=== PATIENT | female | born 1945 | race Caucasian/White ===

== ENCOUNTER 2020-12-22 23:28 | Emergency (ER) | payer MEDICARE, OTHER ==
[~2020-12-22] VITALS: Ht 157.5 cm; Wt 73.7 kg
[2020-12-22] MEDS ORDERED: ACETAMINOPHEN 500 MG TABLET PO ONE (23:45)
[2020-12-22] MEDS ORDERED: DEXAMETHASONE 4 MG TABLET PO ONE (23:45)
[2020-12-23 00:08] LABS: BASO # 0.2 x10^3/uL (0.0-0.2); BASO % 1 % (0-3); EOS % 0 % (0-3); HEMATOCRIT 41.8 % (36.0-47.0); HEMOGLOBIN 13.4 g/dL (12.0-15.5); LYMPH # 0.8 x10^3/uL (1.0-4.8); LYMPH % 6 % (24-48); MEAN CORPUSCULAR HEMOGLOBIN 30 pg (25-35); MEAN CORPUSCULAR HGB CONC 32 g/dL (31-37); MEAN CORPUSCULAR VOLUME 92 fL (79-100); MONO # 1.2 x10^3/uL (0.0-1.1); MONO % 8 % (0-9); NEUT # 12.5 x10^3uL (1.8-7.7); NEUT % 85 % (31-73); PLATELET COUNT 297 x10^3/uL (140-400); RED BLOOD COUNT 4.53 x10^6/uL (3.50-5.40); RED CELL DISTRIBUTION WIDTH 15.9 % (11.5-14.5); WHITE BLOOD COUNT 14.8 x10^3/uL (4.0-11.0)
[2020-12-23 00:13] LABS: CALCIUM 8.7 mg/dL (8.5-10.1); CREATININE 2.3 mg/dL (0.6-1.0); GFR 20.6; POTASSIUM 3.7 mmol/L (3.5-5.1)
[2020-12-23 00:19] LABS: ALBUMIN/GLOBULIN RATIO 0.9 (1.0-1.7); TOTAL BILIRUBIN 0.5 mg/dL (0.2-1.0); TOTAL PROTEIN 6.4 g/dL (6.4-8.2)
[2020-12-23] MEDS ORDERED: IPRATRPIUM/ALBUTEROL 0.5/2.5MG 3 ML NEBU. NEB ONE (00:30)
--- NOTE | 2020-12-23 00:51 | RAD ---
XR CHEST 1V Clinical History: Reason: SOB / Spl. Instructions: / History: Technique: AP view of the chest was obtained at 12/22/2020 12:11 AM. Comparison: None. Findings: The heart is mildly large. The pulmonary vessels appear somewhat full and cephalized. There is increa sed reticular opacities of the lungs. The pleural margins are clear. Impression: 1. Mild cardiomegaly. 2. Bilateral infiltrates consistent with CHF. Electronically signed by: Puneet Johnson III, MD (12/23/2020 12:48 AM) [facility]
[2020-12-23] MEDS ORDERED: IV RINGERS SOLUTION,LACTATED 1,000 ML IV ONE (01:15)
--- NOTE | 2020-12-23 01:35 | PHYS DOC ---
Past History Past Medical History: CHF, COPD, Hypertension Past Surgical History: Other Additional Past Surgical Histo: UNKNOWN Alcohol Use: None Adult General Chief Complaint Chief Complaint: DYSPNEA/RESPIRATOY DISTRESS HPI HPI Patient is a 75-year-old female with a past medical history of CHF, COPD and hypertension who presents with a chief complaint of shortness of breath. States has been going on approximately 1 to 2 days, has worsened over the last 3 or so. States she has been using her COPD treatments at home with little relief. Denies any recent travel, illnesses, fevers, known ill contacts, chest pain, abdominal pain, nausea, vomiting, dysuria, hematuria or blood in the stool. States that she has had decreased urine output and fatigue. States she is taking all her medications as prescribed. Review of Systems Review of Systems Review of systems otherwise unremarkable except noted in HPI Current Medications Current Medications Current Medications Medications (Trade) Dose Ordered Sig/Martin Start Time Stop Time Status Last Admin Dose Admin Acetaminophen (Tylenol) 1,000 mg 1X ONCE 12/22/20 23:45 12/23/20 00:16 DC 12/23/20 00:14 1,000 MG Albuterol/ Ipratropium (Duoneb) 3 ml 1X ONCE 12/23/20 00:30 12/23/20 00:31 DC 12/23/20 00:32 3 ML Dexamethasone (Decadron) 10 mg 1X ONCE 12/22/20 23:45 12/23/20 00:16 DC 12/23/20 00:14 10 MG Lactated Ringer's 1,000 ml @ 1,000 mls/hr 1X ONCE 12/23/20 01:15 12/23/20 02:14 12/23/20 01:16 1,000 MLS/HR Levofloxacin/ Dextrose 150 ml @ 100 mls/hr 1X ONCE 12/23/20 01:00 12/23/20 02:29 12/23/20 00:51 100 MLS/HR Allergies Allergies Allergies Coded Allergies Type Severity Reaction Last Updated Verified LETICIA Inhibitors Allergy Intermediate 12/23/20 Yes ARB-Angiotensin Receptor Antagonist Allergy Intermediate 12/23/20 Yes Beta-Blockers (Beta-Adrenergic Bloc Allergy Intermediate 12/23/20 Yes Calcium Channel Blocking Agent Dilt Allergy Intermediate 12/23/20 Yes Calcium Channel Blocking Agents-Dih Allergy Intermediate 12/23/20 Yes chlorothiazide Allergy Intermediate 12/23/20 Yes clonidine Allergy Intermediate 12/23/20 Yes furosemide Allergy Intermediate 12/23/20 Yes hydralazine Allergy Intermediate 12/23/20 Yes Physical Exam Physical Exam Constitutional: Well developed, well nourished, no acute distress, non-toxic appearance. [] HENT: Normocephalic, atraumatic, bilateral external ears normal, oropharynx moist, no oral exudates, nose normal. [] Eyes: conjunctiva normal, no discharge. [] Neck: Normal range of motion, Cardiovascular: Sinus tachycardia Lungs & Thorax: Bilateral, global rhonchi and end expiratory wheeze Abdomen: soft, no tenderness, no masses, no pulsatile masses. [] Skin: Warm, dry, no erythema, no rash. [] Back: No tenderness, no CVA tenderness. [] Extremities: No tenderness, no cyanosis, no clubbing, ROM intact, no edema. [] Neurologic: Alert and oriented X 3, normal motor function, normal sensory function, no focal deficits noted. [] Psychologic: Affect normal, judgement normal, mood normal. [] Current Patient Data Vital Signs Vital Signs Date Time Temp Pulse Resp B/P (MAP) Pulse Ox O2 Delivery O2 Flow Rate FiO2 12/23/20 00:39 103 42 115/46 (69) 94 BiPAP/CPAP 12/23/20 00:02 103.0 15.0 Lab Results Laboratory Tests Test 12/22/20 23:38 12/22/20 23:45 Sodium Level 141 mmol/L (136-145) Potassium Level 3.7 mmol/L (3.5-5.1) Chloride Level 100 mmol/L (98-107) Carbon Dioxide Level 33 mmol/L (21-32) H Anion Gap 8 (6-14) Blood Urea Nitrogen 28 mg/dL (7-20) H Creatinine 2.3 mg/dL (0.6-1.0) H Estimated GFR (Cockcroft-Gault) 20.6 BUN/Creatinine Ratio 12 (6-20) Glucose Level 145 mg/dL (70-99) H Lactic Acid Level 2.1 mmol/L (0.4-2.0) H Calcium Level 8.7 mg/dL (8.5-10.1) Total Bilirubin 0.5 mg/dL (0.2-1.0) Aspartate Amino Transferase (AST) 18 U/L (15-37) Alanine Aminotransferase (ALT) 14 U/L (14-59) Alkaline Phosphatase 59 U/L (46-116) Troponin I Quantitative 0.366 ng/mL (0-0.055) H RC-Xoq-J-Type Natriuretic Peptide 23157 pg/mL (0-449) H Total Protein 6.4 g/dL (6.4-8.2) Albumin 3.0 g/dL (3.4-5.0) L Albumin/Globulin Ratio 0.9 (1.0-1.7) L White Blood Count 14.8 x10^3/uL (4.0-11.0) H Red Blood Count 4.53 x10^6/uL (3.50-5.40) Hemoglobin 13.4 g/dL (12.0-15.5) Hematocrit 41.8 % (36.0-47.0) Mean Corpuscular Volume 92 fL (79-100) Mean Corpuscular Hemoglobin 30 pg (25-35) Mean Corpuscular Hemoglobin Concent 32 g/dL (31-37) Red Cell Distribution Width 15.9 % (11.5-14.5) H Platelet Count 297 x10^3/uL (140-400) Neutrophils (%) (Auto) 85 % (31-73) H Lymphocytes (%) (Auto) 6 % (24-48) L Monocytes (%) (Auto) 8 % (0-9) Eosinophils (%) (Auto) 0 % (0-3) Basophils (%) (Auto) 1 % (0-3) Neutrophils # (Auto) 12.5 x10^3uL (1.8-7.7) H Lymphocytes # (Auto) 0.8 x10^3/uL (1.0-4.8) L Monocytes # (Auto) 1.2 x10^3/uL (0.0-1.1) H Eosinophils # (Auto) 0.0 x10^3/uL (0.0-0.7) Basophils # (Auto) 0.2 x10^3/uL (0.0-0.2) EKG EKG EKG nondiagnostic and unreadable Radiology/Procedures Radiology/Procedures []R CHEST 1V Clinical History: Reason: SOB / Spl. Instructions: / History: Technique: AP view of the chest was obtained at 12/22/2020 12:11 AM. Comparison: None. Findings: The heart is mildly large. The pulmonary vessels appear somewhat full and cephalized. There is increased reticular opacities of the lungs. The pleural margins are clear. Impression: 1. Mild cardiomegaly. 2. Bilateral infiltrates consistent with CHF. Electronically signed by: Puneet Johnson III, MD (12/23/2020 12:48 AM) [facility] Heart Score C/O Chest Pain: No Risk Factors: Risk Factors: DM, Current or recent (<one month) smoker, HTN, HLP, family history of CAD, obesity. Risk Scores: Risk Factors: DM, Current or recent (<one month) smoker, HTN, HLP, family history of CAD, obesity. Course & Med Decision Making Course & Med Decision Making Patient is a 75-year-old female who presents with a chief complaint of shortness of breath. Vital signs notable for tachycardia, tachypnea and hypoxia on room air. Patient placed on noninvasive positive pressure ventilation initially, had some improvement with that and DuoNeb then switched to nasal cannula after some time. Chest x-ray noted above with probable pulmonary edema bilaterally, given her fever probably underlying pneumonia. Laboratory analysis notable for neutrophilic leukocytosis, KIRA, elevated troponin and elevated BNP. Patient given dose of home Bumex. Started on antibiotics, given DuoNeb and steroids for probable COPD exacerbation as well as pneumonia on top of pulmonary edema given fever. Cultures obtained. Discussed all findings with patient and family and recommended admission to the hospital for continued evaluation and treatment of her diagnosis above. Family grateful, verbalized understanding and agreed with plan of admission. [] Dragon Disclaimer Dragon Disclaimer This electronic medical record was generated, in whole or in part, using a voice recognition dictation system. Departure Departure: Impression: Primary Impression: CHF exacerbation Additional Impressions: Elevated troponin KIRA (acute kidney injury) Pneumonia Fever A-fib Disposition: 02 DC/TRF OTHER SHORT TERM HOS Admitting Physician: Alison Arreguin Condition: IMPROVED Referrals: NAZ EDMONDS MD (PCP) Problem Qualifiers GALLITO DIANA MD Dec 23, 2020 01:35
[2020-12-23] MEDS ORDERED: BUMETANIDE 1 MG/4 ML VIAL. IVP SCH (02:00)
[2020-12-23 02:25] LABS: BGAS PH 7.38 (7.35-7.45)
[2020-12-23 02:38] VITALS: BP 107/68
--- NOTE | 2020-12-23 03:24 | EKG ---
[facility] ED 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
[2020-12-23 04:24] LABS: BACTERIA,URINE MANY /HPF (0-FEW); BILIRUBIN,URINE SMALL (NEG); CLARITY,URINE HAZY; COLOR,URINE YELLOW; GLUCOSE,URINE NEG (NEG); NITRITE,URINE NEG (NEG); UROBILINOGEN,URINE 0.2 mg/dL (0.2 mg/dL); WBC,URINE >40 /HPF (0-4)
--- NOTE | 2020-12-24 13:08 | NUR ---
IP note: Call attempted to pt at [phone]. SMS message sent with number for return call, as pt's name-identified voicemailbox is full.
== END 2020-12-23 04:13 | disposition short-term general hospital (02) ==
LOC: ER 23:28
DX: N17.9 Acute kidney failure, unspecified (principal); J18.9 Pneumonia, unspecified organism; R77.8 Other specified abnormalities of plasma proteins; I48.91 Unspecified atrial fibrillation; I11.0 Hypertensive heart disease with heart failure; I50.9 Heart failure, unspecified; J44.9 Chronic obstructive pulmonary disease, unspecified; Z20.822 Contact with and (suspected) exposure to COVID-19; Z88.8 Allergy status to other drugs, medicaments and biological substances
CPT/HCPCS: 36415; 36600; 71045; 80053; 81001; 82803; 83605; 83880; 84484; 85025; 93005; 94640; 94660; 96365; 96375; 99285; C9803; J1956; J3490; J7120; J8540; U0003; U0005

== ENCOUNTER → 2021-02-04 | Outpatient (CLI) | payer MEDICARE, OTHER ==
--- NOTE | 2021-02-04 16:07 | RAD ---
US DPLX ARTR EXTREM LOWER BILAT Indication: Reason: PVD, HX OF SMOKING X60 YEARS, HTN / Spl. Instructions: / History: Reported histo ry of chronic arterial occlusions bilaterally. Comparison: None. Procedure: Real-time grayscale, color flow Doppler, and Doppler spectral waveform analysis of the art erial system of the lower extremity is performed. Findings: Right lower extremity: Significant increased velocity within the right deep femoral artery measures 3 91 cm/s. Occlusion of the right mid superficial femoral artery with reconstitution of the popliteal a rtery. Occlusion of the posterior tibial, peroneal and anterior tibial arteries. Reconstitution of th e dorsalis pedis artery with monophasic waveform. Right popliteal cyst measures 5.4 x 3.1 x 1.8 cm. E xtensive atheromatous plaque. Left lower extremity: Monophasic waveforms throughout the left lower extremity. Occlusion of the prox imal posterior tibial artery with distal reconstitution. Decreased velocity within the distal left lo wer extremity. Left popliteal cyst measures 4.6 x 4.4 x 2.0 cm. Extensive atheromatous plaque. IMPRESSION: 1. Occlusion of the RIGHT superficial femoral artery with reconstitution of the popliteal artery. CT angiogram can further assess as clinically warranted. 2. Occlusion of the RIGHT posterior tibial, peroneal and anterior tibial arteries. 3. Occlusion of the LEFT proximal posterior tibial artery with distal reconstitution. 4. Elevated velocity within the RIGHT deep femoral artery, may indicate 50-75 percent stenosis. 5. Bilateral popliteal cysts. Electronically signed by: Kenn Villafana DO (02/04/2021 4:04 PM) [facility]
== END ==
LOC: US 14:41
PROVIDERS: ATTEND Family Medicine
DX: M71.22 Synovial cyst of popliteal space [Baker], left knee (principal); M71.21 Synovial cyst of popliteal space [Baker], right knee; I70.92 Chronic total occlusion of artery of the extremities; Z87.891 Personal history of nicotine dependence
CPT/HCPCS: 93925

== ENCOUNTER 2021-09-09 23:22 | Inpatient (IN) | payer OTHER ==
[~2021-09-09] VITALS: Ht 152.4 cm; Wt 83.8 kg
[2021-09-10 00:34] LABS: BASO # 0.1 x10^3/uL (0.0-0.2); BASO % 1 % (0-3); EOS # 0.4 x10^3/uL (0.0-0.7); EOS % 4 % (0-3); HEMATOCRIT 32.3 % (36.0-47.0); HEMOGLOBIN 10.3 g/dL (12.0-15.5); LYMPH # 1.2 x10^3/uL (1.0-4.8); LYMPH % 10 % (24-48); MEAN CORPUSCULAR HEMOGLOBIN 30 pg (25-35); MEAN CORPUSCULAR HGB CONC 32 g/dL (31-37); MEAN CORPUSCULAR VOLUME 93 fL (79-100); MONO # 0.9 x10^3/uL (0.0-1.1); MONO % 8 % (0-9); NEUT # 9.1 x10^3uL (1.8-7.7); NEUT % 77 % (31-73); PLATELET COUNT 290 x10^3/uL (140-400); RED BLOOD COUNT 3.48 x10^6/uL (3.50-5.40); RED CELL DISTRIBUTION WIDTH 14.7 % (11.5-14.5); WHITE BLOOD COUNT 11.7 x10^3/uL (4.0-11.0)
[2021-09-10 00:43] LABS: CALCIUM 8.8 mg/dL (8.5-10.1); CREATININE 1.5 mg/dL (0.6-1.0); GFR 33.6; POTASSIUM 3.8 mmol/L (3.5-5.1)
[2021-09-10 00:56] LABS: ALBUMIN 3.1 g/dL (3.4-5.0); MAGNESIUM 1.9 mg/dL (1.8-2.4); PHOSPHORUS 3.6 mg/dL (2.6-4.7); TOTAL BILIRUBIN 0.3 mg/dL (0.2-1.0); TOTAL PROTEIN 6.1 g/dL (6.4-8.2)
--- NOTE | 2021-09-10 01:33 | EKG ---
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
--- NOTE | 2021-09-10 01:48 | RAD ---
AP chest x-ray HISTORY: Dyspnea. COMPARISON: Chest x-ray December 23, 2020 FINDINGS: Moderate cardiomegaly is stable. No pneumothorax. No pleural effusions. There is a mild opa city right lung base could be atelectasis or lobar pneumonia. Left lung is clear. Upper thoracic scol iosis. IMPRESSION: Right lower lobe opacity. Electronically signed by: Agusto Cox MD (09/10/2021 1:45 AM) [facility]
[2021-09-10] MEDS ORDERED: ACETAMINOPHEN 325 MG TABLET PO PRN (02:30)
[2021-09-10] MEDS ORDERED: IPRATRPIUM/ALBUTEROL 0.5/2.5MG 3 ML NEBU. NEB PRN (02:30)
[2021-09-10] MEDS ORDERED: DEXAMETHASONE SOD PHOS 10 MG/ML VIAL. IVP ONE (02:30)
[2021-09-10] MEDS ORDERED: IV NORMAL SALINE 500ML 500 ML IV ONE (02:30)
[2021-09-10] MEDS ORDERED: ONDANSETRON PF 4 MG/2 ML VIAL. IVP PRN (02:30)
[2021-09-10 02:44] LABS: BGAS PH 7.36 (7.35-7.45)
[2021-09-10 03:03] LABS: BILIRUBIN,URINE NEG (NEG); CLARITY,URINE HAZY; COLOR,URINE YELLOW; GLUCOSE,URINE NEG (NEG); NITRITE,URINE POS (NEG); UROBILINOGEN,URINE 0.2 mg/dL (0.2 mg/dL)
[2021-09-10 03:04] LABS: BACTERIA,URINE MANY /HPF (0-FEW); RBC,URINE 0 /HPF (0-2); SQUAMOUS EPITHELIAL CELL,UR FEW /LPF; WBC,URINE >40 /HPF (0-4)
[2021-09-10 04:53] LABS: INFLUENZA A PATIENT NEGATIVE (NEGATIVE); INFLUENZA B PATIENT NEGATIVE (NEGATIVE)
[2021-09-10] MEDS ORDERED: OXYMETAZOLINE 0.05% NASAL SPRAY 30ML BOTTLE. NS ONE ×2 (05:00)
[2021-09-10 17:01] VITALS: BP 120/60
--- NOTE | 2021-09-10 17:50 | NUR ---
ADMISSION PT ARRIVED VIA EMS WITH BELONGINGS. PT CHANGED INTO GOWN AND KEPT RINGS ON. PT ON 5L NASAL CANNULA. PT ORIENTED TO PERSON AND WAS ABLE TO STATE , BUT UNABLE TO TELL US WHERE SHE WAS OR HER SITUATION. PT HAS SIGNIFICANT TREMORS IN UPPER EXTREMITIES AND BILATERAL 1+ LOWER EDEMA. PT STATES SHE LIVES AT HOME WITH HER TWO SONS. PT STATES "I AM GOING TO , I AM HERE TO ." PT CHANGED INTO GOWN, VITALS TAKEN, ADMISSION COMPLETED. DR EDMONDS NOTIFIED OF PT ARRIVAL.
[2021-09-10] MEDS ORDERED: LEVO88TA4 PO ×2 (18:09→18:27)
[2021-09-10] MEDS ORDERED: MONT10TA80 PO (18:27)
[2021-09-10] MEDS ORDERED: HYDR-2869 PO (18:27)
[2021-09-10] MEDS ORDERED: DOXA1TAB2 PO (18:27)
[2021-09-10] MEDS ORDERED: BUME2TAB3 PO (18:27)
[2021-09-10] MEDS ORDERED: BACL10TA PO (18:27)
[2021-09-10] MEDS ORDERED: PRED5TAB PO (18:27)
[2021-09-10] MEDS ORDERED: LOSA1TAB25 PO (18:27)
[2021-09-10] MEDS ORDERED: AMLO-307 PO (18:27)
--- NOTE | 2021-09-10 18:45 | HP ---
DATE OF SERVICE: 09/10/2021 ADMIT DATE: 09/10/2021 HISTORY OF PRESENT ILLNESS: The patient is a 76-year-old female who came in through the Emergency Room with increased shortness of breath. The patient in turn was noted to have probable a pneumonic process and as a result of this, was admitted to the hospital for further evaluation of her pneumonia and difficulty in breathing. PAST MEDICAL HISTORY: Cardiac disorders, CHF, hypercholesterolemia, hypertension, COPD, pneumonia, hysterectomy, urinary tract infections, arthritis, hypothyroidism, tobacco abuse, smoking. ALLERGIES: LETICIA INHIBITORS, ARB INHIBITORS, BETA BLOCKERS, CALCIUM CHANNEL BLOCKERS, CHLORTHALIDONE, CLONIDINE, FUROSEMIDE, HYDRALAZINE. SOCIAL HISTORY: A 40-50 pack year history of smoking, occasional alcohol use. She is a full code. REVIEW OF SYSTEMS: Increased shortness of breath, coughing. Denies chest pain, abdominal pain. Denies any melena, hematochezia, hematemesis and neurologically stable in that regard. PHYSICAL EXAMINATION: GENERAL: An ill-appearing white female. VITAL SIGNS: Blood pressure 146/80, respiratory rate 32, pulse 75, temperature 98.3, 3 liters at 93. HEENT: The patient's head was atraumatic, normocephalic. Eyes: PERRLA without jaundice. The mouth and throat were normal. NECK: Supple without JVD or thyroidmegaly. LUNGS: Diminished, poor movement of air in both lobes, decreased. CARDIOVASCULAR: Regular sinus rhythm. ABDOMEN: Soft, protuberant. EXTREMITIES: No clubbing, cyanosis, nor edema. NEUROLOGIC: Intact. IMAGING STUDIES: The patient's imaging shows right lower lobe opacity. LABORATORY DATA: White count 11, hemoglobin 10 and 32. Chemistry; 142, 3.8, 23, 1.5, albumin 3.1. Blood gas shows CO2 retention, 7.36, pCO2 of 64, pO2 of 54. COVID negative. UA shows greater than 40 white blood cells per high powered field. IMPRESSION: Pneumonia, urinary tract infection, moderate protein malnutrition. The patient continued to be monitored carefully, make further evaluation on her as indicated per those results and continue on IV antibiotic therapy and breathing treatments. STAN DR: Denise TID: [id number]
[2021-09-10 20:05] VITALS: BP 146/74
[2021-09-10 20:58] VITALS: BP 146/69
[2021-09-10 23:26] VITALS: BP 170/61
--- NOTE | 2021-09-11 01:13 | NUR ---
Pt with clearer mentation this evening. A/Ox3, forgetful at times. Able to make needs known. Weaned supplemental O2 back to home level of 3L via NC, sats maintaining 93-95%. Pt reports she is still SOA, but improved from arrival to ED.
[2021-09-11 06:02] VITALS: BP 136/67
[2021-09-11] MEDS ORDERED: AMLODIPINE PO SCH (09:00)
[2021-09-11] MEDS ORDERED: NON FORMULARY ITEM (Losartan/Hydrochlorothiazide (Losartan-Hctz 100-12.5 Mg Tab) 1 TAB) PO SCH (09:00)
[2021-09-11] MEDS: predniSONE 5 MG TABLET PO SCH (09:00)
[2021-09-11] MEDS ORDERED: VALSARTAN PO SCH (09:00)
[2021-09-11] MEDS: BUMETANIDE 1 MG TABLET PO SCH (10:00)
[2021-09-11] MEDS: DOXAZOSIN MESYLATE 1 MG TABLET PO SCH (10:00)
[2021-09-11 10:36] VITALS: BP 164/66
[2021-09-11] MEDS: LEVOTHYROXINE 88 MCG TABLET PO SCH (11:00)
--- NOTE | 2021-09-11 12:41 | RAD ---
EXAM: Head CT without contrast. HISTORY: Left arm weakness. TECHNIQUE: Computed tomographic images of the head were obtained without contrast. *One or more of the following individualized dose reduction techniques were utilized for this examina tion: 1. Automated exposure control. 2. Adjustment of the mA and/or kV according to patient size. 3. Use of iterative reconstruction technique. COMPARISON: None. FINDINGS: The exam is limited due to motion. There is no intracranial hemorrhage. There is cerebral v olume loss. There is no mass effect or midline shift. There is no hydrocephalus. There is decreased attenuation within the right frontal lobe likely due to encephalomalacia from chronic care nurse teofilo infarction. There is decreased attenuation within the cerebral white matter due to chronic small vessel disease. There is a tiny incidental lipoma along the anterior falx. The visualized portions of the orbits, paranasal sinuses and mastoid air cells are unremarkable. No s uspicious calvarial lesion is seen. IMPRESSION: 1. No acute intracranial finding. Note is made that MRI is more sensitive for acute infarction. 2. Chronic infarct within the right frontal lobe. 3. Cerebral white matter changes, likely due to chronic small vessel disease. 4. Cerebral volume loss. Electronically signed by: Mimi Beltran MD (09/11/2021 12:39 PM) [id number]
[2021-09-11] MEDS: IPRATRPIUM/ALBUTEROL 0.5/2.5MG 3 ML NEBU. NEB SCH ×2 (14:00→19:38)
[2021-09-11 15:56] VITALS: BP 148/75
[2021-09-11 19:00] VITALS: BP 134/57
[2021-09-11] MEDS ORDERED: AMLO-186 PO (19:41)
[2021-09-11] MEDS ORDERED: PENT400T7 PO (19:41)
[2021-09-11] MEDS ORDERED: LOSA100T14 PO (19:41)
[2021-09-11] MEDS ORDERED: HYDR-2869 PO (19:41)
[2021-09-11] MEDS: PENTOXIFYLLINE ER 400 MG TABLET.ER. PO SCH (20:32)
[2021-09-11] MEDS: MONTELUKAST 10 MG TABLET. PO SCH (20:32)
[2021-09-11] MEDS: BACLOFEN 10 MG TABLET PO PRN (20:32)
[2021-09-11] MEDS: LACTOBACILLUS RHAMNOSUS GG 1 CAPSULE. PO SCH (20:33)
[2021-09-11 23:00] VITALS: BP 145/76
--- NOTE | 2021-09-12 02:18 | PN ---
SUBJECTIVE: The patient is a 76-year-old female with pneumonia, shortness of breath. The patient has left arm weakness and contractures secondary to a right frontal stroke that she suffered years ago. The patient is undergoing physical therapy. She is receiving respiratory therapy as well as PT, OT. OBJECTIVE: VITAL SIGNS: Blood pressure 134/57, respiratory rate 20, pulse 72, afebrile, 3 liters at only 93. GENERAL: The patient otherwise is alert and oriented. The patient as noted has contracture to left arm, left hand and will need a splint to keep her fingers from digging into the palm of the hand. LUNGS: Otherwise diminished throughout, poor movement of air. CARDIOVASCULAR: Regular sinus rhythm. ABDOMEN: Protuberant. EXTREMITIES: No clubbing, cyanosis or edema. NEUROLOGIC: As noted, the patient is alert. She speaks rather well. She does have some problem, of course, with that left arm and hand as noted above. 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 PLAN: Otherwise continue to monitor the patient and continue with IV antibiotic therapy. MARILU DR: Denise TID: [id number]
[2021-09-12 05:00] VITALS: BP 144/74
[2021-09-12] MEDS: IPRATRPIUM/ALBUTEROL 0.5/2.5MG 3 ML NEBU. NEB SCH ×3 (05:07→20:58)
[2021-09-12] MEDS: LOSARTAN 50 MG TABLET. PO SCH (08:20)
[2021-09-12] MEDS: LACTOBACILLUS RHAMNOSUS GG 1 CAPSULE. PO SCH ×2 (08:20→20:32)
[2021-09-12] MEDS: predniSONE 5 MG TABLET PO SCH (08:21)
[2021-09-12] MEDS: LEVOTHYROXINE 88 MCG TABLET PO SCH (08:21)
[2021-09-12] MEDS: amLODIPine BESYLATE 5 MG TABLET PO SCH (08:21)
[2021-09-12] MEDS: BUMETANIDE 1 MG TABLET PO SCH (08:21)
[2021-09-12] MEDS: PENTOXIFYLLINE ER 400 MG TABLET.ER. PO SCH ×3 (08:21→20:32)
[2021-09-12] MEDS: DOXAZOSIN MESYLATE 1 MG TABLET PO SCH (08:22)
--- NOTE | 2021-09-12 09:42 | PN ---
SUBJECTIVE: The patient with pneumonia. The patient is a pleasant 76-year-old female who has a problem of right sided CVA, left sided stroke, she has had for some time. However, the patient does have a loss of use of that left arm and hand. The patient, however, presently is in here because of a pneumonic process and this in turn has caused her to have some difficulty in breathing. Although she is improved, she is on continuous oxygen, but she is on oxygen in any way at home for chronic emphysema and she was a heavy smoker. OBJECTIVE: VITAL SIGNS: Blood pressure 144/74, respiratory rate 18, pulse 90. She is afebrile, 3 liters nasal cannula 92. GENERAL: The patient is alert and oriented. Has a little trouble with her speech. Due to her previous history of stroke, the patient has left arm weakness and contractures, thus the hand and fingers. Physical therapy is working diligently with that. LUNGS: Diminished throughout, but basically clear. CARDIOVASCULAR: Regular sinus rhythm, S1, S2. ABDOMEN: Protuberant, soft, nontender. NEUROLOGIC: The patient does have +1 pitting edema. She will be kept on a low sodium diet and also diuresed. IMPRESSION: Therefore, pneumonia, exacerbation of chronic obstructive pulmonary disease with an infection, acute respiratory failure on top of chronic respiratory failure, history of a right sided cerebrovascular accident with left sided hemiparesis, anemia of chronic disease and moderate protein malnutrition. PLAN: Continue with IV antibiotic therapy. Continue to monitor kidney function and we will repeat her chest x-ray. DAK[place] DR: Denise TID: [id number]
[2021-09-12 10:42] VITALS: BP 118/68
[2021-09-12] MEDS ORDERED: SODIUM CHLORIDE 0.65% NASAL SPRAY 45ML BOTTLE. NS PRN (11:30)
[2021-09-12] MEDS: BACLOFEN 10 MG TABLET PO PRN (13:06)
[2021-09-12 15:01] VITALS: BP 114/64
[2021-09-12] MEDS ORDERED: METOPROLOL TARTRATE 5 MG/5 ML VIAL. IV ONE (17:45)
[2021-09-12] MEDS: MONTELUKAST 10 MG TABLET. PO SCH (20:32)
[2021-09-12] MEDS: CYCLOBENZAPRINE 10 MG TABLET. PO PRN (20:32)
[2021-09-12] MEDS: CEFDINIR 300 MG CAPSULE PO SCH (20:32)
[2021-09-12 20:48] VITALS: BP 109/64
[2021-09-13 00:14] VITALS: BP 121/64
[2021-09-13] MEDS: CYCLOBENZAPRINE 10 MG TABLET. PO PRN ×2 (05:35→21:30)
[2021-09-13] MEDS: LEVOTHYROXINE 88 MCG TABLET PO SCH (05:35)
[2021-09-13] MEDS: IPRATRPIUM/ALBUTEROL 0.5/2.5MG 3 ML NEBU. NEB SCH ×3 (06:00→21:31)
--- NOTE | 2021-09-13 06:04 | EKG ---
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
[2021-09-13 06:19] VITALS: BP 106/65
[2021-09-13 06:42] LABS: BASO # 0.1 x10^3/uL (0.0-0.2); BASO % 1 % (0-3); EOS # 0.3 x10^3/uL (0.0-0.7); EOS % 3 % (0-3); HEMATOCRIT 30.2 % (36.0-47.0); HEMOGLOBIN 9.6 g/dL (12.0-15.5); LYMPH # 2.2 x10^3/uL (1.0-4.8); LYMPH % 22 % (24-48); MEAN CORPUSCULAR HEMOGLOBIN 29 pg (25-35); MEAN CORPUSCULAR HGB CONC 32 g/dL (31-37); MEAN CORPUSCULAR VOLUME 93 fL (79-100); MONO # 0.8 x10^3/uL (0.0-1.1); MONO % 9 % (0-9); NEUT # 6.5 x10^3uL (1.8-7.7); NEUT % 66 % (31-73); PLATELET COUNT 272 x10^3/uL (140-400); RED BLOOD COUNT 3.25 x10^6/uL (3.50-5.40); RED CELL DISTRIBUTION WIDTH 14.4 % (11.5-14.5); WHITE BLOOD COUNT 9.8 x10^3/uL (4.0-11.0)
[2021-09-13] MEDS: BUMETANIDE 1 MG TABLET PO SCH (09:05)
[2021-09-13] MEDS: CEFDINIR 300 MG CAPSULE PO SCH ×2 (09:06→21:30)
[2021-09-13] MEDS: LOSARTAN 50 MG TABLET. PO SCH (09:06)
[2021-09-13] MEDS: DOXAZOSIN MESYLATE 1 MG TABLET PO SCH (09:06)
[2021-09-13] MEDS: LACTOBACILLUS RHAMNOSUS GG 1 CAPSULE. PO SCH ×2 (09:06→21:30)
[2021-09-13] MEDS: predniSONE 5 MG TABLET PO SCH (09:06)
[2021-09-13] MEDS: amLODIPine BESYLATE 5 MG TABLET PO SCH (09:06)
[2021-09-13] MEDS: PENTOXIFYLLINE ER 400 MG TABLET.ER. PO SCH ×3 (09:07→21:30)
[2021-09-13] MEDS ORDERED: predniSONE 20 MG TABLET PO SCH (09:30)
[2021-09-13] MEDS ORDERED: CEFD300C PO (09:39)
[2021-09-13] MEDS ORDERED: PRED20TA PO (09:39)
[2021-09-13] MEDS ORDERED: IPRA3AMP29 NEB (09:39)
[2021-09-13] MEDS ORDERED: CYCL10TA19 PO (09:39)
[2021-09-13] MEDS ORDERED: predniSONE 5 MG TABLET PO ONE (09:45)
[2021-09-13 12:21] VITALS: BP 117/62
[2021-09-13 16:31] VITALS: BP 115/72
[2021-09-13 19:20] VITALS: BP 106/61
[2021-09-13] MEDS: MONTELUKAST 10 MG TABLET. PO SCH (21:31)
[2021-09-13 23:22] VITALS: BP 126/67
--- NOTE | 2021-09-13 23:31 | PN ---
DATE: 09/13/2021 SUBJECTIVE: The patient in with pneumonia exacerbation of COPD secondary to the infection and history of a right-sided CVA, left-sided hemiparesis. The patient is feeling a little better, at first wanted to go home and refused, did not want to go home. OBJECTIVE: VITAL SIGNS: Blood pressure 110/60, respiratory 22, pulse 75, afebrile, 4 liters at 91. GENERAL: The patient otherwise alert and oriented. LUNGS: Show some expiratory wheezes. CARDIOVASCULAR: Regular sinus rhythm presently. ABDOMEN: Soft, protuberant. EXTREMITIES: No clubbing, cyanosis or edema. NEUROLOGIC: Intact. IMPRESSION: Pneumonia, community acquired; iron deficiency anemia. PLAN: Continue on IV antibiotic therapy, steroids and start her on some iron supplement, make further evaluation on her as indicated. GABRIELLE/NYA DR: GABRIELLE/kody TID: [id number]
[2021-09-14] MEDS: IPRATRPIUM/ALBUTEROL 0.5/2.5MG 3 ML NEBU. NEB SCH ×3 (03:43→21:01)
[2021-09-14] MEDS: LEVOTHYROXINE 88 MCG TABLET PO SCH (04:53)
[2021-09-14 05:28] VITALS: BP 157/75
[2021-09-14] MEDS: LACTOBACILLUS RHAMNOSUS GG 1 CAPSULE. PO SCH ×2 (08:24→20:40)
[2021-09-14] MEDS: PENTOXIFYLLINE ER 400 MG TABLET.ER. PO SCH ×3 (08:24→20:40)
[2021-09-14] MEDS: CEFDINIR 300 MG CAPSULE PO SCH ×2 (08:24→20:40)
[2021-09-14] MEDS: LOSARTAN 50 MG TABLET. PO SCH (08:24)
[2021-09-14] MEDS: predniSONE 20 MG TABLET PO SCH (08:25)
[2021-09-14] MEDS: BUMETANIDE 1 MG TABLET PO SCH ×2 (08:25→08:30)
[2021-09-14] MEDS: amLODIPine BESYLATE 5 MG TABLET PO SCH (08:25)
[2021-09-14] MEDS: DOXAZOSIN MESYLATE 1 MG TABLET PO SCH (08:26)
[2021-09-14 11:49] VITALS: BP 123/62
[2021-09-14 16:14] VITALS: BP 113/65
--- NOTE | 2021-09-14 16:18 | NUR ---
PT UP TO THE BATHROOM TODAY. DR. EDMONDS'S PLAN IS TO KEEP AT LEAST FOR ANOTHER DAY. PT QUESTIONING HER MEDS TODAY. PT RESTED IN BED MOST OF THE DAY.
[2021-09-14 19:57] VITALS: BP 114/66
--- NOTE | 2021-09-14 20:12 | PN ---
SUBJECTIVE: A 76-year-old female in with pneumonia and acute exacerbation of COPD secondary to her infectious process and acute on top of chronic respiratory failure. The patient is resting comfortably, still wheezy, but markedly improved. OBJECTIVE: VITAL SIGNS: Blood pressure 157/75, respiratory rate 20, pulse 93 liters nasal cannula at 94, afebrile. GENERAL: The patient is alert and oriented. LUNGS: Diminished, but clearer than they have been. She is better, she is improved. She is moving little bit better and will continue to be monitored carefully. CARDIOVASCULAR: Regular sinus rhythm, S1, S2. ABDOMEN: Protuberant. EXTREMITIES: No clubbing, cyanosis or edema. NEUROLOGIC: Otherwise baseline for her. IMPRESSION: Pneumonia, acute on top of chronic respiratory failure. PLAN: Continue with present drug regimen and make further evaluation on her as indicated. GABRIELLE/SOURAV DR: Denise TID: [id number]
[2021-09-14] MEDS: CYCLOBENZAPRINE 10 MG TABLET. PO PRN (20:40)
[2021-09-14] MEDS: MONTELUKAST 10 MG TABLET. PO SCH (20:40)
[2021-09-14 23:34] VITALS: BP 106/57
--- NOTE | 2021-09-15 02:48 | NUR ---
Nursing note: Patient confided to this RN that she has difficulty showering at home d/t step-in shower and lack of grab bar, feels "judged" by some of staff for "being dirty". Discussed possible solutions with patient. Pt up frequently, requested coffee multiple times per shift. Lungs diminished with minimal wheezes, pt on baseline 3L NC.
[2021-09-15] MEDS: IPRATRPIUM/ALBUTEROL 0.5/2.5MG 3 ML NEBU. NEB SCH ×3 (05:41→22:22)
[2021-09-15] MEDS: LEVOTHYROXINE 88 MCG TABLET PO SCH (05:49)
[2021-09-15 05:52] VITALS: BP 149/63
[2021-09-15] MEDS: CEFDINIR 300 MG CAPSULE PO SCH ×2 (08:05→20:19)
[2021-09-15] MEDS: LACTOBACILLUS RHAMNOSUS GG 1 CAPSULE. PO SCH ×2 (08:05→20:19)
[2021-09-15] MEDS: PENTOXIFYLLINE ER 400 MG TABLET.ER. PO SCH ×3 (08:05→20:19)
[2021-09-15] MEDS: predniSONE 20 MG TABLET PO SCH (08:06)
[2021-09-15] MEDS: amLODIPine BESYLATE 5 MG TABLET PO SCH (08:06)
[2021-09-15] MEDS: LOSARTAN 50 MG TABLET. PO SCH (08:06)
[2021-09-15] MEDS: DOXAZOSIN MESYLATE 1 MG TABLET PO SCH (08:07)
[2021-09-15 11:33] VITALS: BP 120/66
--- NOTE | 2021-09-15 13:50 | NUR ---
PT STATES IS GOING TO KEEP HER UNTIL TOMORROW, BECAUSE SHE DOESN'T WANT TO GO HOME IN THE "BITTER COLD" TODAY BECAUSE IT "TAKES MY BREATH AWAY". PT RESTING TODAY.
[2021-09-15 16:06] VITALS: BP 123/63
[2021-09-15] MEDS ORDERED: CALCIUM CARBONATE 500 MG TAB.CHEW PO PRN (18:00)
[2021-09-15 19:56] VITALS: BP 145/72
[2021-09-15] MEDS: MONTELUKAST 10 MG TABLET. PO SCH (20:19)
--- NOTE | 2021-09-15 21:42 | PN ---
SUBJECTIVE: A 76-year-old female in with pneumonia. The patient had an exacerbation of chronic obstructive pulmonary disease secondary to her pneumonia. The patient is resting fairly comfortably, making fairly good progress overall. The patient otherwise is tapering down on her steroids and will continue to be monitored on that. Hopefully, ready for discharge soon. She is only at 91% on room air. OBJECTIVE: VITAL SIGNS: Blood pressure 120/60, respiration 18, pulse 90, afebrile. GENERAL: The patient is alert and oriented. LUNGS: Diminished, markedly improved. CARDIOVASCULAR: Regular sinus rhythm. ABDOMEN: Soft, nontender. IMPRESSION: Therefore, pneumonia, acute exacerbation of chronic obstructive pulmonary disease secondary to her pneumonia, acute respiratory failure on top of chronic respiratory failure, morbid obesity. The patient continued to be monitored and make further evaluation on her as indicated. AI DR: Denise TID: [id number]
[2021-09-15 23:46] VITALS: BP 116/57
[2021-09-16 05:15] VITALS: BP 148/68
[2021-09-16] MEDS: IPRATRPIUM/ALBUTEROL 0.5/2.5MG 3 ML NEBU. NEB SCH ×2 (05:29→11:18)
[2021-09-16] MEDS: LEVOTHYROXINE 88 MCG TABLET PO SCH (05:42)
[2021-09-16] MEDS: LACTOBACILLUS RHAMNOSUS GG 1 CAPSULE. PO SCH (08:46)
[2021-09-16] MEDS: LOSARTAN 50 MG TABLET. PO SCH (08:46)
[2021-09-16] MEDS: predniSONE 20 MG TABLET PO SCH (08:46)
[2021-09-16] MEDS: PENTOXIFYLLINE ER 400 MG TABLET.ER. PO SCH (08:46)
[2021-09-16] MEDS: amLODIPine BESYLATE 5 MG TABLET PO SCH (08:46)
[2021-09-16] MEDS: CEFDINIR 300 MG CAPSULE PO SCH (08:46)
[2021-09-16] MEDS: DOXAZOSIN MESYLATE 1 MG TABLET PO SCH (09:00)
--- NOTE | 2021-09-16 11:08 | DISCH ---
HOME HEALTH DISCHARGE/MEDS DISCHARGE INFORMATION: Discharge Date: Sep 16, 2021 Final Diagnosis: Problems Medical Problems: (1) Acute pneumonia Status: Acute Condition on Discharge: Stable CODE STATUS: Code Status: Full HOME HEALTH: Face to Face: I certify this patient is under my care and that I, or a nurse practitioner or physician's kindergarten teacher assistant working with me, had a face to face encounter that meets the physician face to face encounter requirements with this patient on September 16, 2021. Medical Condition(s): Pneumonia Long Term For: Assess Cardiopulm Status, Assess & Educate Safety, Assess/Skilled Observatio, Medication Management Homebound Status Met By: Fatigue w/ amb. POST DISCHARGE ORDERS: Activity Instructions for Disc: Activity as tolerated Weight Bearing Status after Di: No restrictions DIET AFTER DISCHARGE: Cardiac CERTIFICATION STATEMENT: Certification Statement: Based on the above finding, I certify that this patient is confined to the home and needs intermittent [facility] care, physical therapy and/or speech therapy, or continues to need occupational therapy.~ This patient is under my care, and I have initiated the establishment of the plan of care.~ This patient will be followed by myself or a community physician who will periodically review the plan of care. DISCHARGE MEDICATIONS: Home Meds Active Scripts Prednisone (PREDNISONE) 20 Mg Tablet, 20 MG PO DAILY for copd for 30 Days, #30 TAB Prov:NAZ EDMONDS MD 09/13/21 Cyclobenzaprine Hcl (CYCLOBENZAPRINE HCL) 10 Mg Tablet, 10 MG PO PRN TID PRN for MUSCLE SPASMS for 30 Days, #60 TAB Prov:NAZ EDMONDS MD 09/13/21 Ipratropium/Albuterol Sulfate (DUONEB 0.5-3(2.5) MG/3 ML) 3 Ml Ampul.neb, 3 ML NEB TID for copd for 30 Days, #90 EACH Prov:NAZ EDMONDS MD 09/13/21 Cefdinir (CEFDINIR) 300 Mg Capsule, 300 MG PO BID for pneumonia for 10 Days, #20 CAP Prov:NAZ EDMONDS MD 09/13/21 Reported Medications Losartan Potassium (LOSARTAN POTASSIUM) 100 Mg Tablet, 100 MG PO DAILY for HYPERTENSION, TAB 09/11/21 Hydralazine Hcl (HYDRALAZINE HCL) 50 Mg Tablet, 50 MG PO TID for htn, TAB 09/11/21 Pentoxifylline (PENTOXIFYLLINE) 400 Mg Tablet.er, 400 MG PO TID for improve circulation, TAB.SR 09/11/21 Amlodipine Besylate (AMLODIPINE BESYLATE) 5 Mg Tablet, 5 MG PO DAILY for htn, TAB 09/11/21 Bumetanide (BUMETANIDE) 2 Mg Tablet, 2 MG PO DAILY for EDEMA, TAB 09/10/21 Prednisone (PREDNISONE) 5 Mg Tablet, 5 MG PO DAILY for INFLAMMATION, TAB 09/10/21 Montelukast Sodium (MONTELUKAST SODIUM TABLET ) 10 Mg Tablet, 10 MG PO HS for FOR ASTHMA, TAB 0 Refills 09/10/21 Doxazosin Mesylate (DOXAZOSIN MESYLATE) 1 Mg Tablet, 2 MG PO DAILY for URINARY RETENTION, TAB 09/10/21 Levothyroxine Sodium (LEVOTHYROXINE SODIUM) 88 Mcg Tablet, 88 PO DAILYAC for THYROID SUPPLEMENT, #30 TAB 0 Refills 09/10/21 Discontinued Reported Medications Baclofen (BACLOFEN) 10 Mg Tablet, 10 MG PO BID PRN for SEE ADMIN INSTRUCTIONS, #30 TAB 0 Refills 09/10/21 Amlodipine/Valsartan (Amlodipine-Valsartan 5-160 mg) 1 Each Tablet, 1 TAB PO DAILY for BLOOD PRESSURE, TAB 0 Refills 09/10/21 Hydralazine Hcl (HYDRALAZINE HCL) 50 Mg Tablet, 50 MG PO 2-3XD for BLOOD PRESSURE, TAB 09/10/21 NAZ EDMONDS MD Sep 16, 2021 11:08
--- NOTE | 2021-09-16 11:26 | DISCH ---
HOME HEALTH DISCHARGE/MEDS DISCHARGE INFORMATION: Discharge Date: Sep 16, 2021 Final Diagnosis: Problems Medical Problems: (1) Acute pneumonia Status: Acute Condition on Discharge: Stable CODE STATUS: Code Status: Full HOME HEALTH: Face to Face: I certify this patient is under my care and that I, or a nurse practitioner or physician's yard assistant working with me, had a face to face encounter that meets the physician face to face encounter requirements with this patient on 2021. Medical Condition(s): Pneumonia Intermediate For: Assess Cardiopulm Status, Assess & Educate Safety, Assess/Skilled Observatio, Medication Management Homebound Status Met By: Fatigue w/ amb. POST DISCHARGE ORDERS: Activity Instructions for Disc: Activity as tolerated Weight Bearing Status after Di: No restrictions DIET AFTER DISCHARGE: Cardiac CERTIFICATION STATEMENT: Certification Statement: Based on the above finding, I certify that this patient is confined to the home and needs intermittent residential care, physical therapy and/or speech therapy, or continues to need occupational therapy.~ This patient is under my care, and I have initiated the establishment of the plan of care.~ This patient will be followed by myself or a community physician who will periodically review the plan of care. DISCHARGE MEDICATIONS: Home Meds Active Scripts Prednisone (PREDNISONE) 20 Mg Tablet, 20 MG PO DAILY for copd for 30 Days, #30 TAB Prov:NAZ EDMONDS MD 09/13/21 Cyclobenzaprine Hcl (CYCLOBENZAPRINE HCL) 10 Mg Tablet, 10 MG PO PRN TID PRN for MUSCLE SPASMS for 30 Days, #60 TAB Prov:NAZ EDMONDS MD 09/13/21 Ipratropium/Albuterol Sulfate (DUONEB 0.5-3(2.5) MG/3 ML) 3 Ml Ampul.neb, 3 ML NEB TID for copd for 30 Days, #90 EACH Prov:NAZ EDMONDS MD 09/13/21 Cefdinir (CEFDINIR) 300 Mg Capsule, 300 MG PO BID for pneumonia for 10 Days, #20 CAP Prov:NAZ EDMONDS MD 09/13/21 Reported Medications Losartan Potassium (LOSARTAN POTASSIUM) 100 Mg Tablet, 100 MG PO DAILY for HYPERTENSION, TAB 09/11/21 Hydralazine Hcl (HYDRALAZINE HCL) 50 Mg Tablet, 50 MG PO TID for htn, TAB 09/11/21 Pentoxifylline (PENTOXIFYLLINE) 400 Mg Tablet.er, 400 MG PO TID for improve circulation, TAB.SR 09/11/21 Amlodipine Besylate (AMLODIPINE BESYLATE) 5 Mg Tablet, 5 MG PO DAILY for htn, TAB 09/11/21 Bumetanide (BUMETANIDE) 2 Mg Tablet, 2 MG PO DAILY for EDEMA, TAB 09/10/21 Prednisone (PREDNISONE) 5 Mg Tablet, 5 MG PO DAILY for INFLAMMATION, TAB 09/10/21 Montelukast Sodium (MONTELUKAST SODIUM TABLET ) 10 Mg Tablet, 10 MG PO HS for FOR ASTHMA, TAB 0 Refills 09/10/21 Doxazosin Mesylate (DOXAZOSIN MESYLATE) 1 Mg Tablet, 2 MG PO DAILY for URINARY RETENTION, TAB 09/10/21 Levothyroxine Sodium (LEVOTHYROXINE SODIUM) 88 Mcg Tablet, 88 PO DAILYAC for THYROID SUPPLEMENT, #30 TAB 0 Refills 09/10/21 Discontinued Reported Medications Baclofen (BACLOFEN) 10 Mg Tablet, 10 MG PO BID PRN for SEE ADMIN INSTRUCTIONS, #30 TAB 0 Refills 09/10/21 Amlodipine/Valsartan (Amlodipine-Valsartan 5-160 mg) 1 Each Tablet, 1 TAB PO DAILY for BLOOD PRESSURE, TAB 0 Refills 09/10/21 Hydralazine Hcl (HYDRALAZINE HCL) 50 Mg Tablet, 50 MG PO 2-3XD for BLOOD PRESSURE, TAB 09/10/21 NAZ EDMONDS MD Sep 16, 2021 11:25
[2021-09-16 11:42] VITALS: BP 147/73
--- NOTE | 2021-09-16 15:16 | NUR ---
discharge note Pt discharged at 1516 via wheelchair accompanied by family member . pt given written and verbal instructions with verbal statement of understanding received.
--- NOTE | 2021-10-07 20:34 | DS ---
DATE OF DISCHARGE: 09/16/2021 HOSPITAL COURSE: A 76-year-old female came in with shortness of breath, acute respiratory distress, had a pneumonic process. The patient was noted to have an elevated white count 11,000, COVID negative. The patient also had greater than 40 white blood cells per high powered field. The patient was placed on IV antibiotic therapy. The patient made good progress overall, tapering down on steroids that were used. She is only at 91% on room air, required additional oxygen. The patient otherwise made good progress overall, and the patient was discharged home for followup as an outpatient. Her labs demonstrated hemoglobin of 9.6 and hematocrit 30. The patient's chemistries demonstrated a BUN and creatinine of 23 and 1.5. GFR of 33. Iron was low at 18 and moderate protein malnutrition. The patient's urine as noted above. Serology negative for flu and COVID-19 and urine grew out E. coli organism, sensitive to the antibiotics we were using. 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 The patient will be discharged on a diabetic diet, oxygen and continued to be monitored carefully as an outpatient. MARILU DR: Denise TID: [id number]
== END 2021-09-16 15:17 | disposition home or self-care (01) | DRG 177 ==
LOC: ER 23:22 → 1 SOUTH 09-10 02:23
PROVIDERS: ADMIT Family Medicine; ATTEND Family Medicine
DX: J15.6 Pneumonia due to other Gram-negative bacteria (principal); J96.20 Acute and chronic respiratory failure, unspecified whether with hypoxia or hypercapnia; E43 Unspecified severe protein-calorie malnutrition; I69.354 Hemiplegia and hemiparesis following cerebral infarction affecting left non-dominant side; N39.0 Urinary tract infection, site not specified; J15.9 Unspecified bacterial pneumonia; D50.9 Iron deficiency anemia, unspecified; D63.8 Anemia in other chronic diseases classified elsewhere; E03.9 Hypothyroidism, unspecified; E66.01 Morbid (severe) obesity due to excess calories; E78.00 Pure hypercholesterolemia, unspecified; I11.0 Hypertensive heart disease with heart failure; I50.9 Heart failure, unspecified; J43.9 Emphysema, unspecified; Z87.891 Personal history of nicotine dependence; Z90.710 Acquired absence of both cervix and uterus; Z99.81 Dependence on supplemental oxygen; M19.90 Unspecified osteoarthritis, unspecified site; Z68.36 Body mass index [BMI] 36.0-36.9, adult; Z79.899 Other long term (current) drug therapy; Z20.822 Contact with and (suspected) exposure to COVID-19; B96.20 Unspecified Escherichia coli [E. coli] as the cause of diseases classified elsewhere
CPT/HCPCS: 36415; 36600; 70450; 71045; 80053; 81001; 82803; 83540; 83550; 83735; 83880; 84100; 84484; 85025; 87077; 87086; 87186; 87426; 87804; 93005; 94640; 96365; 96375; J1100; J1956; J3010; J3490; J7040; J7512; U0003; 97110; 97530; 99285-25

== ENCOUNTER 2021-10-12 13:05 | Inpatient (IN) | payer MEDICARE, OTHER ==
[~2021-10-12] VITALS: Ht 160 cm; Wt 83.9 kg
[~2021-10-12 13:05] MED LIST: AMLO-186 PO; AMLO-307 PO; BACL10TA PO; BUME2TAB3 PO; CEFD300C PO; CYCL10TA19 PO; DOXA1TAB2 PO; HYDR-2869 PO; IPRA3AMP29 NEB; LEVO88TA4 PO; LOSA100T14 PO; LOSA1TAB25 PO; MONT10TA80 PO; PENT400T7 PO; PRED20TA PO; PRED5TAB PO
[2021-10-12] MEDS ORDERED: IOHEXOL 350 MG/ML 100 ML VIAL. IV ONE (13:30)
[2021-10-12] MEDS ORDERED: DEXAMETHASONE SOD PHOS 10 MG/ML VIAL. IV ONE (13:30)
--- NOTE | 2021-10-12 13:35 | PHYS DOC ---
Past History Past Medical History: A-Fib, CHF, COPD, Hypertension, Hypothyroid Past Surgical History: Cholecystectomy, Hysterectomy, Other Additional Past Surgical Histo: STENTS IN NECK Alcohol Use: None General Adult EDM: Chief Complaint: SHORTNESS OF BREATH HPI: HPI: 76-year-old female presents via EMS with shortness of breath. The patient is normally on 3 L of oxygen at home. She was reported to have an oxygen saturation in the 70s on her normal 3 L. That is why she called EMS. EMS placed her on 10 L and brought her to the emergency room. Patient has not been diagnosed Covid positive or negative. She had pneumonia recently was treated with antibiotics. She has a history of COPD. She does not believe she has had a fever at home. Review of Systems: Review of Systems: Constitutional: Denies fever or chills Eyes: Denies change in visual acuity HENT: Denies nasal congestion or sore throat Respiratory: Shortness of breath Cardiovascular: Denies chest pain or edema GI: Denies abdominal pain, nausea, vomiting, bloody stools or diarrhea : Denies dysuria Musculoskeletal: Denies back pain or joint pain Integument: Denies rash Neurologic: Denies headache, focal weakness or sensory changes Endocrine: Denies polyuria or polydipsia Lymphatic: Denies swollen glands Psychiatric: Denies depression or anxiety Current Medications: Current Meds: Current Medications Medications (Trade) Dose Ordered Sig/Martin Start Time Stop Time Status Last Admin Dose Admin Dexamethasone Sodium Phosphate (Decadron) 10 mg 1X ONCE 10/12/21 13:30 10/12/21 13:31 DC Info (Do NOT chart on this entry -- for MONITORING) 1 each PRN DAILY PRN 10/12/21 13:45 10/14/21 13:44 Iohexol (Omnipaque 350 Mg/ml) 100 ml 1X ONCE 10/12/21 13:30 10/12/21 13:31 DC Allergies: Allergies: Allergies Coded Allergies Type Severity Reaction Last Updated Verified LETICIA Inhibitors Allergy Intermediate 12/23/20 Yes ARB-Angiotensin Receptor Antagonist Allergy Intermediate 12/23/20 Yes Beta-Blockers (Beta-Adrenergic Bloc Allergy Intermediate 12/23/20 Yes Calcium Channel Blocking Agent Dilt Allergy Intermediate 12/23/20 Yes Calcium Channel Blocking Agents-Dih Allergy Intermediate 12/23/20 Yes chlorothiazide Allergy Intermediate 12/23/20 Yes clonidine Allergy Intermediate 12/23/20 Yes furosemide Allergy Intermediate 12/23/20 Yes hydralazine Allergy Intermediate 12/23/20 Yes Physical Exam: PE: Constitutional: Well developed, well nourished, morbidly obese, no acute distress, non-toxic appearance. [] HENT: Normocephalic, atraumatic, bilateral external ears normal, oropharynx moist, no oral exudates, nose normal. [] Eyes: PERRLA, EOMI, conjunctiva normal, no discharge. [] Neck: Normal range of motion, no tenderness, supple, no stridor. [] Cardiovascular: Heart rate 93, regular rhythm, no murmur [] Lungs & Thorax: Bilateral breath sounds diminished with end expiratory wheezing [] Abdomen: Bowel sounds normal, soft, no tenderness, no masses, no pulsatile masses. [] Skin: Warm, dry, no erythema, no rash. [] Back: No tenderness, no CVA tenderness. [] Extremities: No tenderness, no cyanosis, no clubbing, ROM intact, no edema. [] Neurologic: Alert and oriented X 3, normal motor function, normal sensory function, no focal deficits noted. [] Psychologic: Affect normal, judgement normal, mood normal. [] EKG: EKG: Sinus rhythm, rate 93, normal axis, no ST elevation or depression. [] Radiology/Procedures: Radiology/Procedures: [] Impressions: CT chest without contrast PQRS statement: CT scans at this facility use dose reduction including either automated exposure control, iterative reconstructions, and /or weight based radiation dosing via mA and kV modification when appropriate to reduce radiation dose to as low as reasonably achievable. HISTORY: Covid. Shortness of breath. COMPARISON: Chest x-ray September 10, 2021 FINDINGS: Ascending thoracic aorta diameter, 1 cm. Extensive calcified plaque thoracic aorta and coronary artery calcified plaque. There is mild cardiomegaly. Pulmonary vessels and esophagus are unremarkable. Calcified granulomas in the chest are present. No enlarged adenopathy in the chest. Exam is somewhat motion degraded. 3 mm on the right middle lobe image 48. There are some indistinct areas of smooth paraseptal interstitial thickening and groundglass densities at both the upper and lower lung zones somewhat obscured by respiratory motion artifact. Mild dependent lower lobe opacity likely atelectasis. Along the right suprahilar upper lobe adjacent views of pleura there is a focal nodular opacity with surrounding linear scarring or atelectasis measuring 15 mm on axial image 24 and coronal images 41-43. Bones unremarkable. IMPRESSION: 1. Motion degraded exam. Mild areas of pulmonary interstitial thickening and scattered groundglass opacities. This may represent mild pulmonary edema. An atypical infection such as viral pneumonia is also a possibility. Sequela of interstitial lung disease is also a possibility. 2. 15 mm nodular opacity with surrounding linear atelectasis/scarring at the right upper lobe is present most likely represents an infectious/inflammatory process, although a neoplastic nodule is not excluded. There is a 3 mm solid nodule right middle lobe. Consider follow-up CT chest imaging in 3 months, versus further assessment with PET imaging, to document that the right upper lobe nodule resolves to exclude the possibility of a neoplastic nodule. Electronically signed by: Maxi Cox MD (10/12/2021 2:50 PM) [id number] DICTATED AND SIGNED BY: MAXI COX MD DATE: 10/12/21 1441 CC: DENI STEVEN DO; NAZ EDMONDS MD ~MTH0 0 Heart Score: C/O Chest Pain: N/A Risk Factors: Risk Factors: DM, Current or recent (<one month) smoker, HTN, HLP, family history of CAD, obesity. Risk Scores: Score 0 - 3: 2.5% MACE over next 6 weeks - Discharge Home Score 4 - 6: 20.3% MACE over next 6 weeks - Admit for Clinical Observation Score 7 - 10: 72.7% MACE over next 6 weeks - Early Invasive Strategies Course & Med Decision Making: Course & Med Decision Making Pertinent Labs and Imaging studies reviewed. (See chart for details) In the emergency room the patient was saturation percent on 3 L. She does appear to have increased work of breathing. She is wheezing I will treat her with steroids and duo work-up for pneumonia and Covid including CTA to rule out pulmonary embolus. The patient does not have a pulmonary embolus. She does have other findings consistent with COVID-19 as well as possible mass. See official read for more details. I will treat her for pneumonia with azithromycin and Rocephin. I will admit her to the hospital. I spoke with Dr. Edmonds and he has accepted the patient for admission. While the patient was in the emergency room she had increased oxygen demand and is now on a nonrebreather. [] Dragon Disclaimer: Dragon Disclaimer: This electronic medical record was generated, in whole or in part, using a voice recognition dictation system. Departure Departure: Impression: Primary Impression: COPD with respiratory distress, acute Additional Impression: Pneumonia due to COVID-19 virus Disposition: ADMITTED INPATIENT Admitting Physician: Naz Edmonds Condition: GUARDED Referrals: NAZ EDMONDS MD (PCP) DENI STEVEN DO Oct 12, 2021 13:35
[2021-10-12] MEDS ORDERED: CONTRAST GIVEN. MC PRN (13:45)
--- NOTE | 2021-10-12 13:47 | EKG ---
[address] [address] Test Date: 2021-10-12 Test Time: 13:10:14 Pat Name: PAT MOSHER Department: Room: Gender: F Historical Site Guide: MARIJA : 1945 Requested By: DENI STEVEN Order Number: [id number] Reading MD: Tonio Farmer Measurements Intervals [place] Rate: 93 P: 90 MO: 194 QRS: 75 QRSD: 132 T: 79 QT: 378 QTc: 473 Interpretive Statements SINUS RHYTHM VENTRICULAR PREMATURE COMPLEX(ES) ATRIAL PREMATURE COMPLEX(ES) RIGHT BUNDLE BRANCH BLOCK ABNORMAL ECG Electronically Signed On 10-13-2021 9:22:15 SENIOR JAVA ENGINEER by Tonio Farmer
[2021-10-12 13:48] LABS: BASO # 0.1 x10^3/uL (0.0-0.2); BASO % 1 % (0-3); EOS % 0 % (0-3); HEMATOCRIT 31.8 % (36.0-47.0); HEMOGLOBIN 10.1 g/dL (12.0-15.5); LYMPH # 0.7 x10^3/uL (1.0-4.8); LYMPH % 6 % (24-48); MEAN CORPUSCULAR HEMOGLOBIN 30 pg (25-35); MEAN CORPUSCULAR HGB CONC 32 g/dL (31-37); MEAN CORPUSCULAR VOLUME 95 fL (79-100); MONO # 0.8 x10^3/uL (0.0-1.1); MONO % 7 % (0-9); NEUT # 9.8 x10^3uL (1.8-7.7); NEUT % 86 % (31-73); PLATELET COUNT 224 x10^3/uL (140-400); RED BLOOD COUNT 3.36 x10^6/uL (3.50-5.40); RED CELL DISTRIBUTION WIDTH 16.2 % (11.5-14.5); WHITE BLOOD COUNT 11.4 x10^3/uL (4.0-11.0)
[2021-10-12 14:00] LABS: CALCIUM 8.5 mg/dL (8.5-10.1); CREATININE 1.6 mg/dL (0.6-1.0); GFR 31.2; POTASSIUM 4.2 mmol/L (3.5-5.1)
[2021-10-12 14:04] LABS: INFLUENZA A PATIENT NEGATIVE (NEGATIVE); INFLUENZA B PATIENT NEGATIVE (NEGATIVE)
[2021-10-12 14:06] LABS: ALBUMIN 3.1 g/dL (3.4-5.0); TOTAL BILIRUBIN 0.2 mg/dL (0.2-1.0); TOTAL PROTEIN 6.1 g/dL (6.4-8.2)
[2021-10-12] MEDS ORDERED: ENOXAPARIN 40 MG/0.4 ML SYRINGE. SQ ONE (14:15)
[2021-10-12 14:17] LABS: % BANDS 1 % (0-9); % LYMPHS 7 % (24-48); % MONOS 6 % (0-10); % SEGS 86 % (35-66); PLT ESTIMATE ADEQUATE (ADEQUATE)
[2021-10-12 14:18] LABS: HYPOCHROMIA SLIGHT
--- NOTE | 2021-10-12 14:46 | RAD ---
AP chest. HISTORY: Covid positive AP view was taken of the chest. Heart upper normal in size. There is mild basilar atelectasis. There is no other confluent areas of infiltrate. IMPRESSION: 1. Mild hazy basilar atelectasis or mild infiltrates. Electronically signed by: Tayo Alcocer MD (10/12/2021 2:43 PM) [facility]
--- NOTE | 2021-10-12 14:52 | RAD ---
CT chest without contrast PQRS statement: CT scans at this facility use dose reduction including either automated exposure cont rol, iterative reconstructions, and /or weight based radiation dosing via mA and kV modification when appropriate to reduce radiation dose to as low as reasonably achievable. HISTORY: Covid. Shortness of breath. COMPARISON: Chest x-ray September 10, 2021 FINDINGS: Ascending thoracic aorta diameter, 1 cm. Extensive calcified plaque thoracic aorta and lori nary artery calcified plaque. There is mild cardiomegaly. Pulmonary vessels and esophagus are unremar kable. Calcified granulomas in the chest are present. No enlarged adenopathy in the chest. Exam is so mewhat motion degraded. 3 mm on the right middle lobe image 48. There are some indistinct areas of sm ooth paraseptal interstitial thickening and groundglass densities at both the upper and lower lung zo ashley somewhat obscured by respiratory motion artifact. Mild dependent lower lobe opacity likely atelec tasis. Along the right suprahilar upper lobe adjacent views of pleura there is a focal nodular opacit y with surrounding linear scarring or atelectasis measuring 15 mm on axial image 24 and coronal image s 41-43. Bones unremarkable. IMPRESSION: 1. Motion degraded exam. Mild areas of pulmonary interstitial thickening and scattered groundglass op acities. This may represent mild pulmonary edema. An atypical infection such as viral pneumonia is al so a possibility. Sequela of interstitial lung disease is also a possibility. 2. 15 mm nodular opacity with surrounding linear atelectasis/scarring at the right upper lobe is pres ent most likely represents an infectious/inflammatory process, although a neoplastic nodule is not ex cluded. There is a 3 mm solid nodule right middle lobe. Consider follow-up CT chest imaging in 3 bri hs, versus further assessment with PET imaging, to document that the right upper lobe nodule resolves to exclude the possibility of a neoplastic nodule. Electronically signed by: Agusto Cox MD (10/12/2021 2:50 PM) [id number]
[2021-10-12] MEDS ORDERED: AZITHROMYCIN 250 MG TABLET. PO ONE (15:15)
[2021-10-12] MEDS ORDERED: ONDANSETRON PF 4 MG/2 ML VIAL. IVP PRN (15:15)
[2021-10-12] MEDS ORDERED: IV NORMAL SALINE 50ML 50 ML ONE (16:47)
[2021-10-12] MEDS ORDERED: cefTRIAXone SODIUM 1 GM VIAL ONE (16:47)
[2021-10-12] MEDS: ACETAMINOPHEN 325 MG TABLET PO PRN ×2 (16:49→21:56)
[2021-10-12 18:37] VITALS: BP 94/54
--- NOTE | 2021-10-12 18:44 | NUR ---
admission note Pt admitted to room 124 via ems from ed at 1820.
[2021-10-12] MEDS ORDERED: IPRATRPIUM/ALBUTEROL 0.5/2.5MG 3 ML NEBU. NEB SCH (21:00)
[2021-10-12] MEDS: PENTOXIFYLLINE ER 400 MG TABLET.ER. PO SCH (21:55)
[2021-10-12] MEDS: MONTELUKAST 10 MG TABLET. PO SCH (21:56)
[2021-10-12] MEDS: FAMOTIDINE 20 MG TABLET PO SCH (21:56)
[2021-10-12] MEDS: ASCORBIC ACID 1,000 MG TABLET PO SCH (21:59)
[2021-10-12] MEDS: CHOLECALCIFEROL (VITAMIN D3) 1,000 UNIT TABLET PO SCH (21:59)
[2021-10-12 22:26] VITALS: BP 90/52
[2021-10-13] MEDS: LEVOTHYROXINE 88 MCG TABLET PO SCH (06:30)
[2021-10-13] MEDS: DEXAMETHASONE SOD PHOS 4 MG/ML VIAL. IVP SCH ×4 (06:31→15:53)
[2021-10-13 07:00] VITALS: BP 119/68
[2021-10-13] MEDS ORDERED: REMDESIVIR LOAD in IV NORMAL SALINE 250ML TV IV ONE (09:00)
--- NOTE | 2021-10-13 09:27 | NUR ---
Dr. Barth, could you please change Pts. breathing treatment order to Prn and order an inhaler instead? Pt. is positive for Covid. Thank you, Respiratory Therapy.
[2021-10-13] MEDS ORDERED: IPRATRPIUM/ALBUTEROL 0.5/2.5MG 3 ML NEBU. NEB PRN (09:45)
[2021-10-13] MEDS: ASCORBIC ACID 1,000 MG TABLET PO SCH (09:53)
[2021-10-13] MEDS: LACTOBACILLUS RHAMNOSUS GG 1 CAPSULE. PO SCH ×2 (09:53→20:39)
[2021-10-13] MEDS: BUMETANIDE 1 MG TABLET PO SCH (09:53)
[2021-10-13] MEDS: CHOLECALCIFEROL (VITAMIN D3) 1,000 UNIT TABLET PO SCH (09:53)
[2021-10-13] MEDS: DOXAZOSIN MESYLATE 1 MG TABLET PO SCH (09:53)
[2021-10-13] MEDS: PENTOXIFYLLINE ER 400 MG TABLET.ER. PO SCH ×3 (09:55→20:40)
[2021-10-13 11:13] VITALS: BP 121/74
[2021-10-13] MEDS: IPRATROPIUM/ALBUTEROL 20/100mcg/INH INHALER. INH SCH ×3 (12:42→20:00)
[2021-10-13] MEDS: ENOXAPARIN 30 MG/0.3 ML SYRINGE. SQ SCH (15:53)
[2021-10-13 16:17] VITALS: BP 130/78
--- NOTE | 2021-10-13 18:23 | HP ---
DATE OF SERVICE: 10/13/2021 ADMIT DATE: 10/12/2021 HISTORY OF PRESENT ILLNESS: The patient is a 76-year-old female who came in via EMS on 3 liters of oxygen; however, at 3 liters of oxygen, was only 70% and she was brought in and had to be increased to 10 liters to maintain oxygen levels. The patient's labs did show that she was positive for COVID and exacerbation of her COPD secondary to this situation with the COVID infection. A CT of the chest did show ground-glass opacities and pneumonia, probably obviously second flare of the COVID, admitted for such with acute respiratory failure. PAST MEDICAL HISTORY: Congestive heart failure, coronary artery disease, hypertension, respiratory problems, COPD, pneumonia, hysterectomy, urinary tract infections, hyperthyroidism, hypothyroidism. IMMUNIZATIONS: Up-to-date on her vaccines except she did not get a booster. ALLERGIES: LETICIA INHIBITORS, ARBs, BETA-BLOCKERS, CALCIUM CHANNEL BLOCKERS, DILTIAZEM, CHLOROTHIAZIDE, CLONIDINE, FUROSEMIDE, AND HYDRALAZINE. FAMILY HISTORY: Noncontributory. SOCIAL HISTORY: The patient has about a 31-48-qsxh-year history of smoking. Denies alcohol or drug use. REVIEW OF SYSTEMS: Increased shortness of breath. Denies headaches, visual change, blurred vision, double vision. Denies any melena, hematochezia, or hematemesis. The patient otherwise denies any problems with her abdomen. Denies any nausea, vomiting, melena, hematochezia, hematemesis and neurologically intact PHYSICAL EXAMINATION: VITAL SIGNS: Blood pressure 120/70, respiratory rate 24, pulse 77, afebrile, 9-10 liters. GENERAL: The patient, on exam, ill-appearing white female, in moderate amount of distress as noted above. She is on 10 liters nonrebreather mask at 88%. Blood pressure 130/78, respiratory rate 24, temperature 98.3. HEENT: Head: Atraumatic, normocephalic. Eyes: PERRLA without jaundice. The mouth and throat were normal. NECK: Supple. No JVD, carotid bruits, or thyroidmegaly. LUNGS: Diminished throughout, but poor movement of air, crackles noted in the bases. CARDIOVASCULAR: Regular sinus rhythm. ABDOMEN: Protuberant, soft, nontender. No rebounding, no guarding. Positive bowel sounds. EXTREMITIES: Without clubbing, cyanosis, nor edema. NEUROLOGIC: Alert and oriented x 3. The patient otherwise continued to be monitored in that regard. LABORATORY DATA: Shows a white count of 11, hemoglobin and hematocrit 10 and 31. Chemistries; 141, 4.2, 33, 1.6. Blood sugar 84. Albumin slightly low at 3.1. IMPRESSION AND PLAN: Acute respiratory failure, pneumonia secondary to COVID-19, chronic renal failure 1IIB, anemia of chronic disease. The patient continued to be monitored carefully, make further evaluation on her as indicated per those results. KELSI DR: Denise TID: [id number]
[2021-10-13 19:58] VITALS: BP 157/59
[2021-10-13] MEDS: MONTELUKAST 10 MG TABLET. PO SCH (20:39)
[2021-10-13] MEDS: FAMOTIDINE 20 MG TABLET PO SCH (20:39)
[2021-10-13] MEDS: AZITHROMYCIN 500 MG in IV NORMAL SALINE 250ML 250 ML IV SCH (20:39)
[2021-10-13] MEDS ORDERED: ONDANSETRON PF 4 MG/2 ML VIAL. IVP PRN (21:45)
[2021-10-13 23:25] VITALS: BP 119/62
[2021-10-14] MEDS: DEXAMETHASONE SOD PHOS 4 MG/ML VIAL. IVP SCH ×4 (00:39→17:48)
[2021-10-14] MEDS: LEVOTHYROXINE 88 MCG TABLET PO SCH (05:45)
[2021-10-14 06:18] VITALS: BP 147/83
[2021-10-14] MEDS: DOXAZOSIN MESYLATE 1 MG TABLET PO SCH (08:49)
[2021-10-14] MEDS: LACTOBACILLUS RHAMNOSUS GG 1 CAPSULE. PO SCH ×2 (08:49→20:16)
[2021-10-14] MEDS: CHOLECALCIFEROL (VITAMIN D3) 1,000 UNIT TABLET PO SCH (08:49)
[2021-10-14] MEDS: REMDESIVIR 100mg in NORMAL SALINE 250ML X 4 DAYS IV SCH (08:49)
[2021-10-14] MEDS: IPRATROPIUM/ALBUTEROL 20/100mcg/INH INHALER. INH SCH ×4 (08:49→20:16)
[2021-10-14] MEDS: BUMETANIDE 1 MG TABLET PO SCH (08:50)
[2021-10-14] MEDS: ASCORBIC ACID 1,000 MG TABLET PO SCH (08:50)
[2021-10-14] MEDS: PENTOXIFYLLINE ER 400 MG TABLET.ER. PO SCH ×3 (08:50→20:15)
[2021-10-14 10:04] VITALS: BP 143/71
[2021-10-14 10:22] LABS: BASO % 0 % (0-3); EOS % 0 % (0-3); HEMATOCRIT 30.2 % (36.0-47.0); HEMOGLOBIN 9.3 g/dL (12.0-15.5); LYMPH # 0.3 x10^3/uL (1.0-4.8); LYMPH % 3 % (24-48); MEAN CORPUSCULAR HEMOGLOBIN 29 pg (25-35); MEAN CORPUSCULAR HGB CONC 31 g/dL (31-37); MEAN CORPUSCULAR VOLUME 94 fL (79-100); MONO # 0.3 x10^3/uL (0.0-1.1); MONO % 2 % (0-9); NEUT # 11.4 x10^3uL (1.8-7.7); NEUT % 95 % (31-73); PLATELET COUNT 196 x10^3/uL (140-400); RED BLOOD COUNT 3.21 x10^6/uL (3.50-5.40); RED CELL DISTRIBUTION WIDTH 15.4 % (11.5-14.5)
[2021-10-14 10:33] LABS: CREATININE 1.9 mg/dL (0.6-1.0); GFR 25.6; POTASSIUM 4.5 mmol/L (3.5-5.1)
[2021-10-14] MEDS: ENOXAPARIN 30 MG/0.3 ML SYRINGE. SQ SCH (14:20)
[2021-10-14 15:05] VITALS: BP 122/67
[2021-10-14] MEDS: CYCLOBENZAPRINE 10 MG TABLET. PO PRN (17:57)
[2021-10-14 19:00] VITALS: BP 133/71
[2021-10-14] MEDS: AZITHROMYCIN 500 MG in IV NORMAL SALINE 250ML 250 ML IV SCH (20:15)
[2021-10-14] MEDS: MONTELUKAST 10 MG TABLET. PO SCH (20:16)
[2021-10-14] MEDS: FAMOTIDINE 20 MG TABLET PO SCH (20:16)
[2021-10-14] MEDS ORDERED: DEXTROSE 50% 25 GM / 50ML DISP.SYRIN. IV PRN (22:30)
[2021-10-14 23:00] VITALS: BP 142/70
[2021-10-15] MEDS: DEXAMETHASONE SOD PHOS 4 MG/ML VIAL. IVP SCH ×4 (00:15→17:45)
--- NOTE | 2021-10-15 03:58 | PN ---
SUBJECTIVE: A 76-year-old female with COVID-19 pneumonia and acute respiratory failure. The patient in turn has made a little bit of improvement, sounds a little bit better than she has, although she is on maximum per nasal cannula, she was on 10, now she is down to 7 liters. She has been given remdesivir, aggressive therapy, steroids as well as antibiotic therapy, make further evaluation on her as indicated. Otherwise, she continues to make good progress. OBJECTIVE: VITAL SIGNS: Blood pressure 130/70, respiration 18, pulse 83, afebrile, 7 liters at 97. IMPRESSION: Acute respiratory failure, pneumonia secondary to COVID-19 pneumonia; chronic renal failure, IIIB, anemia of chronic disease. GABRIELLE/MARISOL/LINWOOD DR: Denise TID: [id number]
[2021-10-15 05:00] VITALS: BP 120/70
[2021-10-15] MEDS: LEVOTHYROXINE 88 MCG TABLET PO SCH (06:04)
[2021-10-15 07:19] LABS: ALBUMIN 2.7 g/dL (3.4-5.0); ALBUMIN/GLOBULIN RATIO 0.8 (1.0-1.7); CALCIUM 8.7 mg/dL (8.5-10.1); CREATININE 1.6 mg/dL (0.6-1.0); GFR 31.2; TOTAL BILIRUBIN 0.2 mg/dL (0.2-1.0); TOTAL PROTEIN 5.9 g/dL (6.4-8.2)
[2021-10-15] MEDS: INSULIN LISPRO 300 UNITS/3 ML VIAL. SQ SCH ×3 (07:34→17:00)
[2021-10-15] MEDS: IPRATROPIUM/ALBUTEROL 20/100mcg/INH INHALER. INH SCH ×4 (08:07→19:51)
[2021-10-15] MEDS: LACTOBACILLUS RHAMNOSUS GG 1 CAPSULE. PO SCH ×2 (08:08→19:51)
[2021-10-15] MEDS: CHOLECALCIFEROL (VITAMIN D3) 1,000 UNIT TABLET PO SCH (08:08)
[2021-10-15] MEDS: BUMETANIDE 1 MG TABLET PO SCH (08:08)
[2021-10-15] MEDS: REMDESIVIR 100mg in NORMAL SALINE 250ML X 4 DAYS IV SCH (08:08)
[2021-10-15] MEDS: ASCORBIC ACID 1,000 MG TABLET PO SCH (08:09)
[2021-10-15] MEDS: PENTOXIFYLLINE ER 400 MG TABLET.ER. PO SCH ×3 (08:09→19:51)
[2021-10-15] MEDS: DOXAZOSIN MESYLATE 1 MG TABLET PO SCH (08:09)
[2021-10-15 10:32] VITALS: BP 161/71
[2021-10-15] MEDS: ENOXAPARIN 30 MG/0.3 ML SYRINGE. SQ SCH (14:24)
[2021-10-15 17:40] VITALS: BP 160/78
[2021-10-15 19:00] VITALS: BP 150/72
[2021-10-15] MEDS: MONTELUKAST 10 MG TABLET. PO SCH (19:51)
[2021-10-15] MEDS: AZITHROMYCIN 500 MG in IV NORMAL SALINE 250ML 250 ML IV SCH (19:51)
[2021-10-15] MEDS: CYCLOBENZAPRINE 10 MG TABLET. PO PRN (19:51)
[2021-10-15] MEDS: FAMOTIDINE 20 MG TABLET PO SCH (19:51)
--- NOTE | 2021-10-15 22:16 | PN ---
DATE: 10/15/2021 SUBJECTIVE: A 76-year-old female, in with COVID-19 pneumonia, acute respiratory failure. The patient sounds a little bit better. She is still having trouble with her breathing and still continues to need continuous aggressive oxygen therapy up to 7 liters at 94%, blood pressure 160/70, respiratory rate 22, pulse 80, afebrile. The patient is making steady progress, but very slow, will probably need to go to a rehab facility that continues with aggressive pulmonary toilet and the like. OBJECTIVE: GENERAL: Otherwise the patient alert and oriented. LUNGS: Diminished throughout, poor movement of air, slightly improved. CARDIOVASCULAR: Regular sinus rhythm. ABDOMEN: Soft, nontender, protuberant. EXTREMITIES: No clubbing, cyanosis, nor edema. NEUROLOGIC: As indicated baseline there. We will go ahead and continue to monitor the patient accordingly and make further evaluation as noted. IMPRESSION: Acute on top of chronic respiratory failure, pneumonia, COVID-19 pneumonia, chronic renal failure stage 3B, anemia of chronic disease, hyperglycemia and severe protein malnutrition. CHRISTOPHE DR: Denise TID: [id number]
[2021-10-15 23:00] VITALS: BP 157/74
[2021-10-16] MEDS: DEXAMETHASONE SOD PHOS 4 MG/ML VIAL. IVP SCH ×4 (00:07→17:59)
[2021-10-16 05:00] VITALS: BP 165/79
[2021-10-16] MEDS: LEVOTHYROXINE 88 MCG TABLET PO SCH (05:20)
[2021-10-16 06:23] LABS: ALBUMIN 2.5 g/dL (3.4-5.0); ALBUMIN/GLOBULIN RATIO 0.8 (1.0-1.7); CALCIUM 8.6 mg/dL (8.5-10.1); CREATININE 1.4 mg/dL (0.6-1.0); GFR 36.4; POTASSIUM 4.5 mmol/L (3.5-5.1); TOTAL BILIRUBIN 0.2 mg/dL (0.2-1.0); TOTAL PROTEIN 5.5 g/dL (6.4-8.2)
[2021-10-16] MEDS: INSULIN LISPRO 300 UNITS/3 ML VIAL. SQ SCH ×3 (08:00→17:00)
[2021-10-16] MEDS: IPRATROPIUM/ALBUTEROL 20/100mcg/INH INHALER. INH SCH ×4 (08:00→19:31)
[2021-10-16] MEDS: REMDESIVIR 100mg in NORMAL SALINE 250ML X 4 DAYS IV SCH (08:20)
[2021-10-16] MEDS: CHOLECALCIFEROL (VITAMIN D3) 1,000 UNIT TABLET PO SCH (08:20)
[2021-10-16] MEDS: PENTOXIFYLLINE ER 400 MG TABLET.ER. PO SCH ×3 (08:20→19:31)
[2021-10-16] MEDS: LACTOBACILLUS RHAMNOSUS GG 1 CAPSULE. PO SCH ×2 (08:20→19:31)
[2021-10-16] MEDS: ASCORBIC ACID 1,000 MG TABLET PO SCH (08:21)
[2021-10-16] MEDS: DOXAZOSIN MESYLATE 1 MG TABLET PO SCH (08:21)
[2021-10-16] MEDS: BUMETANIDE 1 MG TABLET PO SCH (08:21)
[2021-10-16 10:33] VITALS: BP 167/84
[2021-10-16] MEDS ORDERED: DOCUSATE SODIUM 100 MG CAPSULE PO PRN (11:00)
[2021-10-16 13:10] VITALS: BP 178/72
[2021-10-16] MEDS: amLODIPine BESYLATE 5 MG TABLET PO SCH (13:47)
[2021-10-16] MEDS: ENOXAPARIN 30 MG/0.3 ML SYRINGE. SQ SCH (13:48)
[2021-10-16] MEDS ORDERED: CALCIUM CARBONATE 500 MG TAB.CHEW PO PRN (15:00)
--- NOTE | 2021-10-16 17:30 | NUR ---
Nursing Note Nurse clint Mcneill, checked on pt and found pt pouring her water into the heater. Dr Barth notified, order for consult psych obtained. Order placed in chart and faxed to [facility]. Addendum: 10/16/21 at 1735 by MENDOZA PURVIS RN RN This is the incorrect patient, this note does not apply.
--- NOTE | 2021-10-16 18:10 | NUR ---
NURSING NOTE PT WAS IN BED THIS AM UPON ASSESSMENT AND MEDICATION ADMINISTRATION. PT IS A&O, CALM AND COOPERATIVE. PT IS INDEPENDENT WITH HER MEALS BUT DOES REQUIRE X1 ASSIST FOR GETTING IN AND OUT OF BED MOVING HER LEGS UP AND DOWN. PT REQUEST FOR BRIEF TO BE REMOVED STATING THAT IT IS HURTING HER SKIN IN HER GROIN. PT BLOOD PRESSURE RUNNING HIGH TODAY, DR EDMONDS WAS NOTIFIED AND ADDED AMLODIPINE TO HER MEDICATION LIST. NO BEHAVIORS NOTED.
[2021-10-16] MEDS: MONTELUKAST 10 MG TABLET. PO SCH (19:30)
[2021-10-16] MEDS: AZITHROMYCIN 500 MG in IV NORMAL SALINE 250ML 250 ML IV SCH (19:30)
[2021-10-16] MEDS: CYCLOBENZAPRINE 10 MG TABLET. PO PRN (19:31)
[2021-10-16] MEDS: FAMOTIDINE 20 MG TABLET PO SCH (19:31)
[2021-10-16 19:56] VITALS: BP 160/80
--- NOTE | 2021-10-16 22:04 | PN ---
DATE: 10/16/2021 SUBJECTIVE: A 76-year-old female in with COVID-19 pneumonia. The patient is doing a little bit better, but still very sleepy and tired, sleeps a lot. The patient is still very weak. We are going to move into a nursing facility; however, the patient refuses to do that. The patient has gradually been tapered down on her nasal cannula down to 5 liters at 96%. OBJECTIVE: VITAL SIGNS: Blood pressure 170/80, respiratory rate 18, pulse 70, afebrile. GENERAL: The patient is alert and oriented. LUNGS: Diminished. Again, scattered wheezes noted throughout, but other than that, the patient is making fairly good progress. CARDIOVASCULAR: Regular sinus rhythm. ABDOMEN: Soft, nontender, protuberant. EXTREMITIES: No clubbing, cyanosis, nor edema. The patient's blood sugars are much better controlled and she seems to be making good progress overall on that regard, but still very weak, debilitated from the COVID-19. IMPRESSION: Acute on top of chronic respiratory failure, pneumonia secondary to COVID-19 pneumonia, chronic renal failure, stage IIIB, anemia of chronic disease, hyperglycemia, severe protein malnutrition and morbid obesity. PLAN: Continue with present drug regimen. LACHO DR: Denise TID: [id number]
[2021-10-16 23:17] VITALS: BP 152/75
[2021-10-17] MEDS: DEXAMETHASONE SOD PHOS 4 MG/ML VIAL. IVP SCH ×3 (01:07→11:51)
[2021-10-17 06:27] VITALS: BP 158/81
[2021-10-17] MEDS: LEVOTHYROXINE 88 MCG TABLET PO SCH (06:29)
[2021-10-17 06:31] LABS: ALBUMIN 2.8 g/dL (3.4-5.0); ALBUMIN/GLOBULIN RATIO 0.9 (1.0-1.7); CALCIUM 8.9 mg/dL (8.5-10.1); CREATININE 1.2 mg/dL (0.6-1.0); GFR 43.4; POTASSIUM 4.7 mmol/L (3.5-5.1); TOTAL BILIRUBIN 0.3 mg/dL (0.2-1.0)
[2021-10-17] MEDS: INSULIN LISPRO 300 UNITS/3 ML VIAL. SQ SCH ×2 (08:00→12:00)
[2021-10-17] MEDS: IPRATROPIUM/ALBUTEROL 20/100mcg/INH INHALER. INH SCH ×2 (08:41→11:52)
[2021-10-17] MEDS: REMDESIVIR 100mg in NORMAL SALINE 250ML X 4 DAYS IV SCH (08:48)
[2021-10-17] MEDS: CHOLECALCIFEROL (VITAMIN D3) 1,000 UNIT TABLET PO SCH (08:48)
[2021-10-17] MEDS: BUMETANIDE 1 MG TABLET PO SCH (08:48)
[2021-10-17] MEDS: DOXAZOSIN MESYLATE 1 MG TABLET PO SCH (08:49)
[2021-10-17] MEDS: amLODIPine BESYLATE 5 MG TABLET PO SCH (08:49)
[2021-10-17] MEDS: LACTOBACILLUS RHAMNOSUS GG 1 CAPSULE. PO SCH (08:49)
[2021-10-17] MEDS: PENTOXIFYLLINE ER 400 MG TABLET.ER. PO SCH (08:49)
[2021-10-17] MEDS: ASCORBIC ACID 1,000 MG TABLET PO SCH (08:50)
[2021-10-17 11:37] VITALS: BP 142/72
[2021-10-17] MEDS ORDERED: ENOXAPARIN 40 MG/0.4 ML SYRINGE. SQ SCH (15:00)
[2021-10-17] MEDS ORDERED: CALC200T23 PO (15:06)
[2021-10-17] MEDS ORDERED: LACT1CAP19 PO (15:06)
[2021-10-17] MEDS ORDERED: GUAI600T47 PO (15:06)
[2021-10-17] MEDS ORDERED: ASCO100019 PO (15:06)
[2021-10-17] MEDS ORDERED: PRED5TAB PO (15:06)
[2021-10-17] MEDS ORDERED: INSU100I11 SQ (15:06)
[2021-10-17] MEDS ORDERED: FAMO20TA5 PO (15:06)
[2021-10-17] MEDS ORDERED: DOCU-109 PO (15:06)
[2021-10-17] MEDS ORDERED: CHOL10004 PO (15:06)
[2021-10-17] MEDS ORDERED: ONDA4TAB12 PO (15:06)
--- NOTE | 2021-10-17 15:44 | DISCH ---
HOME HEALTH DISCHARGE/MEDS DISCHARGE INFORMATION: Discharge Date: Oct 17, 2021 Final Diagnosis: Problems Medical Problems: (1) Pneumonia due to COVID-19 virus Status: Acute Condition on Discharge: Stable CODE STATUS: Code Status: Full HOME HEALTH: Face to Face: I certify this patient is under my care and that I, or a nurse practitioner or physician's assistant account executive working with me, had a face to face encounter that meets the physician face to face encounter requirements with this patient on Oct 17, 2021. Medical Condition(s): COPD, HTN, Pneumonia Usp For: Assess Cardiopulm Status, Assess & Educate Safety, Assess/Skilled Observatio, Diabetic Care, Medication Management Physical Therapy For: Evalulation/Treatment Occupational Therapy For: Evaluation/Treatment POST DISCHARGE ORDERS: Activity Instructions for Disc: Activity as tolerated Weight Bearing Status after Di: No restrictions DIET AFTER DISCHARGE: ADA CERTIFICATION STATEMENT: Certification Statement: Based on the above finding, I certify that this patient is confined to the home and needs intermittent penitentiary care, physical therapy and/or speech therapy, or continues to need occupational therapy.~ This patient is under my care, and I have initiated the establishment of the plan of care.~ This patient will be followed by myself or a community physician who will periodically review the plan of care. DISCHARGE MEDICATIONS: Home Meds Active Scripts Guaifenesin (MUCINEX) 600 Mg Tablet.er, 1200 MG PO BID for congestion for 90 Days, #360 TAB.SR 3 Refills Prov:NAZ EDMONDS MD 10/17/21 Ondansetron (ONDANSETRON ODT) 4 Mg Tab.rapdis, 1 TAB PO PRN Q6-8HRS for nausea, #16 TAB 1 Refill Prov:NAZ EDMONDS MD 10/17/21 Lactobacillus Rhamnosus Gg (CULTURELLE) 1 Each Cap.sprink, 1 CAP PO BID for probiotic for 90 Days, #180 CAP Prov:NAZ EDMONDS MD 10/17/21 Insulin Lispro (HUMALOG) 100 Unit/1 Ml Insuln.pen, 0 UNITS SQ TIDWMEALS for elevated blood sugars, #1 EACH 1 Refill Prov:NAZ EDMONDS MD 10/17/21 Famotidine (FAMOTIDINE) 20 Mg Tablet, 20 MG PO QHS for GERD for 90 Days, #90 TAB 3 Refills Prov:NAZ EDMONDS MD 10/17/21 Docusate Sodium (COLACE) 100 Mg Capsule, 100 MG PO PRN DAILY PRN for HARD STOOLS for 90 Days, CAP 9 Refills Prov:NAZ EDMONDS MD 10/17/21 Calcium Carbonate (CALCIUM CARBONATE) 200 Mg Tab.chew, 500 MG PO PRN AFJELLY Salcido RN for INDIGESTION, #120 TAB.CHEW Prov:NAZ EDMONDS MD 10/17/21 Cholecalciferol (Vitamin D3) (Vitamin D3 ) 25 Mcg Tablet, 1000 UNIT PO DAILY for supplement/replacement for 90 Days, #90 TAB 3 Refills Prov:NAZ EDMONDS MD 10/17/21 Ascorbic Acid (VITAMIN C) 1,000 Mg Tablet, 1000 MG PO DAILY for supplement for 60 Days, #60 TAB 2 Refills Prov:NAZ EDMONDS MD 10/17/21 Prednisone (PREDNISONE) 5 Mg Tablet, 5 MG PO DAILY for INFLAMMATION, #100 TAB Start with 8 tablets daily and decrease by 1 tablet every 3rd day, then stay on 2 tablets daily Prov:NAZ EDMONDS MD 10/17/21 Cyclobenzaprine Hcl (CYCLOBENZAPRINE HCL) 10 Mg Tablet, 10 MG PO PRN TID PRN for MUSCLE SPASMS for 30 Days, #60 TAB Prov:NAZ EDMONDS MD 09/13/21 Ipratropium/Albuterol Sulfate (DUONEB 0.5-3(2.5) MG/3 ML) 3 Ml Ampul.neb, 3 ML NEB TID for copd for 30 Days, #90 EACH Prov:NAZ EDMONDS MD 09/13/21 Reported Medications Pentoxifylline (PENTOXIFYLLINE) 400 Mg Tablet.er, 400 MG PO TID for improve circulation, TAB.SR 09/11/21 Amlodipine Besylate (AMLODIPINE BESYLATE) 5 Mg Tablet, 5 MG PO DAILY for htn, TAB 09/11/21 Bumetanide (BUMETANIDE) 2 Mg Tablet, 2 MG PO DAILY for EDEMA, TAB 09/10/21 Montelukast Sodium (MONTELUKAST SODIUM TABLET ) 10 Mg Tablet, 10 MG PO HS for FOR ASTHMA, TAB 0 Refills 09/10/21 Doxazosin Mesylate (DOXAZOSIN MESYLATE) 1 Mg Tablet, 2 MG PO DAILY for URINARY RETENTION, TAB 09/10/21 Levothyroxine Sodium (LEVOTHYROXINE SODIUM) 88 Mcg Tablet, 88 PO DAILYAC for THYROID SUPPLEMENT, #30 TAB 0 Refills 09/10/21 Discontinued Reported Medications Hydralazine Hcl (HYDRALAZINE HCL) 50 Mg Tablet, 50 MG PO TID for htn, TAB 09/11/21 Losartan Potassium (LOSARTAN POTASSIUM) 100 Mg Tablet, 100 MG PO DAILY for HYPERTENSION, TAB 09/11/21 Discontinued Scripts Prednisone (PREDNISONE) 20 Mg Tablet, 20 MG PO DAILY for copd for 30 Days, #30 TAB Prov:NAZ EDMONDS MD 09/13/21 Cefdinir (CEFDINIR) 300 Mg Capsule, 300 MG PO BID for pneumonia for 10 Days, #20 CAP Prov:NAZ EDMONDS MD 09/13/21 NAZ EDMONDS MD Oct 17, 2021 15:44
--- NOTE | 2021-10-17 15:51 | NUR ---
PATIENT IS DISCHARGED HOME WITH HOME HEALTH SERVICES. DISCHARGE INSTRUCTIONS REVIEWED, PATIENT VERBALIZED UNDERSTANDING. PATIENT LEFT ROOM VIA W/C ACCOMP BY STAFF. PATIENT IS TAKEN HOME BY SON VIA PERSONAL VEHICLE.
== END 2021-10-17 15:45 | disposition home health service (06) | DRG 177 ==
LOC: ER 13:05 → ER HOLD 15:08 → 1 SOUTH 18:00
PROVIDERS: ADMIT Family Medicine; ATTEND Family Medicine
PROC: XW033E5 Introduction of Remdesivir Anti-infective into Peripheral Vein, Percutaneous Approach, New Technology Group 5 (ICD-10-PCS; 2021-10-12)
PROC: 5A0935A Assistance with Respiratory Ventilation, Less than 24 Consecutive Hours, High Flow/Velocity Cannula (ICD-10-PCS; principal; 2021-10-15)
PROC: 5A0935A Assistance with Respiratory Ventilation, Less than 24 Consecutive Hours, High Flow/Velocity Cannula (ICD-10-PCS; 2021-10-16)
PROC: 5A0935A Assistance with Respiratory Ventilation, Less than 24 Consecutive Hours, High Flow/Velocity Cannula (ICD-10-PCS; 2021-10-17)
DX: U07.1 COVID-19 (principal); J96.00 Acute respiratory failure, unspecified whether with hypoxia or hypercapnia; J12.82 Pneumonia due to coronavirus disease 2019; E43 Unspecified severe protein-calorie malnutrition; J96.20 Acute and chronic respiratory failure, unspecified whether with hypoxia or hypercapnia; I13.0 Hypertensive heart and chronic kidney disease with heart failure and stage 1 through stage 4 chronic kidney disease, or unspecified chronic kidney disease; J44.0 Chronic obstructive pulmonary disease with (acute) lower respiratory infection; J44.1 Chronic obstructive pulmonary disease with (acute) exacerbation; N18.32 Chronic kidney disease, stage 3b; D63.8 Anemia in other chronic diseases classified elsewhere; E03.9 Hypothyroidism, unspecified; E66.01 Morbid (severe) obesity due to excess calories; I25.10 Atherosclerotic heart disease of native coronary artery without angina pectoris; I48.91 Unspecified atrial fibrillation; I50.9 Heart failure, unspecified; Z87.891 Personal history of nicotine dependence; Z90.710 Acquired absence of both cervix and uterus; Z68.32 Body mass index [BMI] 32.0-32.9, adult; Z88.8 Allergy status to other drugs, medicaments and biological substances
CPT/HCPCS: 36415; 71045; 71250; 80048; 80053; 82803; 82947; 83605; 84484; 85007; 85025; 87040; 87428; 93005; 96365; 96372; 96375; J0456; J0696; J1100; J1650; J1815; J2405; J7050; 99285-25